=== PATIENT | male | born 1980 | race Caucasian/White ===

== ENCOUNTER 2020-02-10 02:38 | Emergency (ER) | payer OTHER, SELFPAY ==
[2020-02-10 02:41] VITALS: BP 138/90; PULSE 75; RESP 18; TEMP 36.2; O2SAT 98; BMI 25.7
--- NOTE | 2020-02-10 02:43 | XR_ITS ---
WS: [id number] CHEST XRAY TECHNIQUE: Portable chest. CLINICAL INFORMATION: cp COMPARISON: None. FINDINGS: Heart: Normal cardiac silhouette. Lungs: Lungs are clear. No consolidation or pleural effusion. Incidental calcified granuloma left upp er lobe. Bones: Normal visualized bony structures. XR/XR chest 1V portable [id number] IMPRESSION: Normal chest
--- NOTE | 2020-02-10 02:43 | ECG_ITS ---
Measurements Intervals [place] Rate: 66 P: 268 MS: 138 QRS: 84 QRSD: 101 T: 45 QT: 373 QTc: 393 JUNCTIONAL RHYTHM ABNORMAL RHYTHM ECG No previous ECG available for comparison Electronically Signed On 02-10-2020 18:02:32 CDT by Kenrick Robles M.D. [email or web address]
--- NOTE | 2020-02-10 02:45 | W.ED.CHESTPA ---
HPI - Chest Pain General: Chief Complaint: Chest Pain Stated Complaint: cp Time Seen by Provider: 02/10/20 02:40 Source: patient Mode of arrival: ambulatory Limitations: no limitations History of Present Illness: HPI narrative: 39-year-old male states he did have chest pain for the last day. He has had mild dyspnea with the pain. Denies any worsening. Factor. He is a smoker and has no other medical issues. No family history of heart disease. MD complaint: chest pain Onset (ago): hour(s) Timing of current episode: episodic Prior episodes: No Onset: during rest Pain location: left chest Pain radiation: left arm Severity: moderate Quality: tightness Relieving factors: nothing Exacerbating factors: nothing Associated symptoms: Deny abdominal pain, dyspnea, fever(s), nausea or vomiting Review of Systems Const: Denies: fever, chills, body aches or change in appetite Eyes: Denies: blurry vision or eye discomfort ENMT: Denies: throat pain or dental pain Card: Reports: chest pain Resp: Denies: shortness of breath GI: Denies: abdominal pain, nausea, vomiting or diarrhea : Denies: painful urination Musc: Denies: neck pain or back pain Skin/Breast: Denies: rash Neuro: Denies: headache Psych: Denies: depression /Lymph: Denies: easy bruising All/Imm: Denies: hives PFSH ED PFSH: Social History Smoking and tobacco status: current every day smoker Physical Exam Const: COMMON NORMALS: no apparent distress, oriented x3 and healthy appearing HENMT: COMMON NORMALS: normocephalic and head/scalp atraumatic HEAD & SCALP: normocephalic and atraumatic Eye: COMMON NORMALS: PERRL and EOMs intact bilaterally PUPIL: Yes PERRL Neck/C-Spine: COMMON NORMALS: full ROM and supple Chest: COMMONS NORMALS: inspection of chest normal and palpation of chest normal Resp: COMMON NORMALS: normal respiratory effort, no retractions, no use of accessory muscles and clear to auscultation bilaterally AUSCULTATION: clear to auscultation bilaterally Cardio: COMMON NORMALS: regular rate, regular rhythm and no murmurs RATE: regular rate RHYTHM: regular rhythm GI: COMMON NORMALS: normal to inspection, nondistended, normoactive bowel sounds, soft to palpation, non-tender and no masses PALPATION: Yes soft Extremity: COMMON NORMALS: normal to inspection and full ROM Neuro: COMMON NORMALS: oriented x3, moves all extremities and no focal motor deficits Psych: COMMON NORMALS: mental status grossly normal, thought process normal and cooperative THOUGHT PROCESS: normal thought process Skin: COMMON NORMALS: no rashes or lesions noted and no wounds GENERAL SKIN EXAM: no rashes or lesions noted Course Vital Signs: Vital signs: Vital Signs Temperature 97.1 F L 02/10/20 02:41 Pulse Rate 55 L 02/10/20 04:38 Respiratory Rate 16 02/10/20 04:38 Blood Pressure 106/77 02/10/20 04:38 Pulse Oximetry 97 02/10/20 04:38 MDM - Chest Pain MDM Narrative: Medical decision making narrative: Patient presents here with chest pain that is atypical in nature. Patient's initial and repeat EKGs here are negative and troponins are negative as well. Patient has no signs of pulmonary embolism. Patient's heart score here is 0. I feel patient is stable for discharge will prescribe Naprosyn. Patient is to follow-up with his primary care doctor in 1 to 3 days and return to the ER if worsening. Patient understands and agrees to plan. Lab Data: Labs: Lab Results 02/10/20 02/10/20 02/10/20 Range/Units 02:50 02:50 02:50 WBC 8.3 (4.0-10.0) 10^3/ uL RBC 5.32 H (4.1-5.3) 10^6/u L Hgb 14.2 (11.7-16.6) g/dL Hct 45.4 (42.0-52.0) % MCV 85.3 (80-94) fL MCH 26.7 L (28.0-34.0) pg MCHC 31.3 (30.0-36.0) g/dL RDW 13.0 (12.1-15.1) % Plt Count 186 (130-400) 10^3/c mm MPV 12.0 H (7.4-10.4) fL Neut % (Auto) 65.9 % Lymph % (Auto) 24.1 % [place] % (Auto) 7.3 % Eos % (Auto) 1.8 % Baso % (Auto) 0.5 % Neut # (Auto) 5.5 (1.8-7.7) 10^3/u L Lymph # (Auto) 2.0 (0.8-4.8) 10^3/u L [place] # (Auto) 0.6 (0.2-0.9) 10^3/u L Eos # (Auto) 0.2 (0.0-0.8) 10^3/u L Baso # (Auto) 0.0 (0.0-0.1) 10^3/u L Nucleated RBC % (a uto) 0 % Nucleated RBCs # 0.0 /100WBC Sodium 139 (136-145) mmol/L Potassium 3.9 (3.5-5.1) mmol/L Chloride 101 (98-107) mmol/L Carbon Dioxide 26 (22-29) mmol/L Anion Gap 15.9 (5-19) BUN 16 (6-20) mg/dL Creatinine 0.9 (0.7-1.2) mg/dL GFR Calculation 93.0 (90-130) mL/min Glucose 100 (65-115) mg/dL Calculated Osmolal ity 284 L (285-295) mOsm/k g Calcium 10.0 (8.5-10.5) mg/dL Total Bilirubin 0.2 (0.15-1.2) mg/dL AST 32 (0-40) U/L ALT 66 H (0-41) U/L Alkaline Phosphata se 93 (40-130) IU/L Troponin T Baselin e 6 (0-15) ng/mL Troponin T 120 Min [place] (0-15) ng/mL Total Protein 7.3 (6.6-8.7) g/dL Albumin 4.7 (3.5-5.2) g/dL Globulin 2.6 (1.3-4.6) g/dL 02/10/20 Range/Units 04:54 WBC (4.0-10.0) 10^3/ uL RBC (4.1-5.3) 10^6/u L Hgb (11.7-16.6) g/dL Hct (42.0-52.0) % MCV (80-94) fL MCH (28.0-34.0) pg MCHC (30.0-36.0) g/dL RDW (12.1-15.1) % Plt Count (130-400) 10^3/c mm MPV (7.4-10.4) fL Neut % (Auto) % Lymph % (Auto) % [place] % (Auto) % Eos % (Auto) % Baso % (Auto) % Neut # (Auto) (1.8-7.7) 10^3/u L Lymph # (Auto) (0.8-4.8) 10^3/u L [place] # (Auto) (0.2-0.9) 10^3/u L Eos # (Auto) (0.0-0.8) 10^3/u L Baso # (Auto) (0.0-0.1) 10^3/u L Nucleated RBC % (a uto) % Nucleated RBCs # /100WBC Sodium (136-145) mmol/L Potassium (3.5-5.1) mmol/L Chloride (98-107) mmol/L Carbon Dioxide (22-29) mmol/L Anion Gap (5-19) BUN (6-20) mg/dL Creatinine (0.7-1.2) mg/dL GFR Calculation (90-130) mL/min Glucose (65-115) mg/dL Calculated Osmolal ity (285-295) mOsm/k g Calcium (8.5-10.5) mg/dL Total Bilirubin (0.15-1.2) mg/dL AST (0-40) U/L ALT (0-41) U/L Alkaline Phosphata se (40-130) IU/L Troponin T Baselin e (0-15) ng/mL Troponin T 120 Min [place] 6.00 (0-15) ng/mL Total Protein (6.6-8.7) g/dL Albumin (3.5-5.2) g/dL Globulin (1.3-4.6) g/dL Imaging Data^: CXR: Attestation: I personally reviewed and interpreted this imaging study as follows: My impression: no acute abnormality EKG Data^: EKG 1: Attestation: I personally reviewed and interpreted this EKG as follows: EKG interpretation date: 02/10/20 EKG interpretation time: 02:46 Interpretation: junctional rhythm hr [address] or t wave abnormalities qrs 101 qtc 387 EKG 2: Attestation: I personally reviewed and interpreted this EKG as follows: EKG interpretation date: 02/10/20 EKG interpretation time: 04:48 Interpretation: sinus bradycardia hr [address] or t wave abnormalities qrs 98 [id number] Discharge Plan Discharge Patient Disposition: Home, Self-Care Clinical Impression: Chest pain Qualifiers: Chest pain type: unspecified Qualified Code(s): R07.9 - Chest pain, unspecified Condition: Stable Prescriptions: New EC-Naprosyn 500 mg tablet,delayed release (DR/EC) 500 mg PO BID PRN (Reason: pain) Qty: 20 RF: 0 Discharge Orders: Discharge Order (Routine); Ordered 02/10/20 Ordered By: Amber Jasso Referrals: Rasta Tariq MD [Primary Care Provider] - 1-3 days Discharge Diet: Advance as tolerated Discharge Activity: Resume usual activity Patient Instructions: Chest Pain (ED) Coding Level of Care Code ED Textile Finisher for Chg Fwd Exam Comprehensive
[2020-02-10 02:58] LABS: Basophils % 0.5 %; Eosinophils # 0.2 10^3/uL (0.0-0.8); Eosinophils % 1.8 %; Hematocrit 45.4 % (42.0-52.0); Hemoglobin 14.2 g/dL (11.7-16.6); Lymphocytes % 24.1 %; Mean Corpuscular HGB Conc 31.3 g/dL (30.0-36.0); Mean Corpuscular Hemoglobin 26.7 pg (28.0-34.0); Mean Corpuscular Volume 85.3 fL (80-94); Monocytes # 0.6 10^3/uL (0.2-0.9); Monocytes % 7.3 %; Neutrophils # 5.5 10^3/uL (1.8-7.7); Neutrophils % 65.9 %; Nucleated Red Blood Cells % 0 %; Platelet Count 186 10^3/cmm (130-400); Red Blood Count 5.32 10^6/uL (4.1-5.3); White Blood Count 8.3 10^3/uL (4.0-10.0)
[2020-02-10] MEDS: aspirin 81 mg Chew Tablet 324 MG PO (02:58)
[2020-02-10] MEDS: nitroglycerin 0.4 mg sublingual Tablet SUBLINGUAL (02:59)
[2020-02-10 03:16] LABS: Alanine Aminotransferase 66 U/L (0-41); Albumin Level 4.7 g/dL (3.5-5.2); Alkaline Phosphatase 93 IU/L (40-130); Anion Gap 15.9 (5-19); Aspartate Amino Transferase 32 U/L (0-40); Blood Urea Nitrogen 16 mg/dL (6-20); Carbon Dioxide 26 mmol/L (22-29); Chloride 101 mmol/L (98-107); Globulin 2.6 g/dL (1.3-4.6); Glucose 100 mg/dL (65-115); Osmolality Calculated 284 mOsm/kg (285-295); Potassium 3.9 mmol/L (3.5-5.1); Sodium 139 mmol/L (136-145); Total Bilirubin 0.2 mg/dL (0.15-1.2); Total Protein 7.3 g/dL (6.6-8.7)
[2020-02-10 03:24] VITALS: BP 121/80; PULSE 60; RESP 16; O2SAT 96
[2020-02-10 03:39] VITALS: RESP 16
[2020-02-10] MEDS: morphine 4 mg/mL SDV 1 mL IVP (03:39)
[2020-02-10 04:02] LABS: Troponin(5th) Baseline 6 ng/mL (0-15)
[2020-02-10 04:38] VITALS: BP 106/77; PULSE 55; RESP 16; O2SAT 97
--- NOTE | 2020-02-10 04:43 | ECG_ITS ---
Measurements Intervals [place] Rate: 51 P: 47 [place]: 182 QRS: 82 QRSD: 98 T: 51 QT: 410 QTc: 381 SINUS BRADYCARDIA WITH OCCASIONAL SUPRAVENTRICULAR PREMATURE COMPLEXES No previous ECG available for comparison Electronically Signed On 02-10-2020 18:11:11 CDT by Kenrick Robles M.D. [id number]
[2020-02-10 05:15] LABS: Troponin 5 2HR Delta 0 ABS# (0-10)
[2020-02-10] MEDS: ketorolac 30 mg/mL INJ IVP (05:27)
[2020-02-10 05:40] VITALS: BP 119/85; PULSE 57; RESP 16; O2SAT 97
--- NOTE | 2020-02-12 11:43 | DCPLANNER ---
retention manager called to check on patient after recent ER visit. retention manager was unable to speak with patient at this time, a voicemail was left for patient to return watch case polisher phone call.
== END 2020-02-10 05:48 | disposition home or self-care (01) ==
PROVIDERS: Emergency Provider Emergency Medicine; Family Provider Family Medicine; PCP Family Medicine
DX: R07.9 Chest pain, unspecified (principal); F17.200 Nicotine dependence, unspecified, uncomplicated
CPT/HCPCS: 12345; 36415; 71045; 80053; 84484; 85025; 93005; 96374; 96375; 99283; 99284; J1885; J2270

== ENCOUNTER 2020-08-28 19:26 | Emergency (ER) | payer OTHER, SELFPAY ==
[2020-08-28 19:34] VITALS: BP 135/98; PULSE 97; RESP 18; TEMP 36.5; O2SAT 98; BMI 27.8
--- NOTE | 2020-08-28 19:51 | XR_ITS ---
WS: [id number] LUMBAR SPINE: 3 VIEWS TECHNIQUE: AP, lateral and L5-S1 spot. HISTORY: back pain COMPARISON: 10/14/2018 Mild straightening of the normal lumbar alignment. 3 to 4 mm retrolisthesis of L2 and L3 similar to t he prior study. No fractures. Partial sacralization on the RIGHT at L5. No loss of disc space or vertebral body height. Focal area of sclerosis involving the RIGHT side of the SI joints similar to the prior study from . XR/XR lumbar spine 2-3V* [id number] IMPRESSION: 1. No fracture. 2. Mild retrolisthesis of L2 and L3, similar to the prior study.
--- NOTE | 2020-08-28 19:51 | W.ED.BACK ---
HPI - Back Pain/Injury General: Chief Complaint: Back Pain/Injury Stated Complaint: COVID +/ fell Time Seen by Provider: 08/28/20 19:38 History of Present Illness: HPI Narrative: 40-year-old male patient presents to the emergency department with lower back pain. He reports slipped off a step, fell down 3-4 steps, tried to catch himself with the side rail. He reports did not hit his head. Fall occurred around 3-4 PM today. He reports history of low back pain, degenerative disc disease. MD elicited complaint: back pain, back injury and fall Pertinent past history: prior back pain Timing: constant and progressively worsening Severity: moderate Similar Symptoms Previously: Yes Quality: sharp and aching Location: lumbar spine and left lower back Exacerbating factors: movement Relieving factors: immobilization Context: fall Associated symptoms: Reports difficulty walking; Deny abdominal pain, chills, dysuria, fatigue, fever(s), nausea or vomiting Treatments prior to arrival: NSAIDS and acetaminophen Review of Systems General: Reports: 10 or more systems reviewed and unremarkable except in HPI and below Const: Denies: fever(s), chills, fatigue or diaphoresis Eyes: Denies: blurry vision or eye redness ENMT: Denies: throat pain, dental pain or disequilibrium Card: Denies: chest pain, palpitations or irregular heart rhythm Resp: Denies: dyspnea, productive cough, non-productive cough or wheezing GI: Denies: abdominal pain, nausea or vomiting : Denies: dysuria Musc: Reports: back pain and limited range of motion (lumbar spine); Denies: neck pain, extremity pain or muscle cramps Skin/Breast: Denies: rash, pruritus or skin tenderness Neuro: Reports: difficulty walking /Lymph: Denies: easy bruising PFS ED PFSH: Social History Smoking and tobacco status: current every day smoker Physical Exam Const: COMMON NORMALS: no acute distress, patient oriented x3, healthy appearing and alert GENERAL APPEARANCE: cooperative, comfortable and well hydrated ORIENTATION/CONSCIOUSNESS: Yes oriented to person, Yes oriented to place and Yes oriented to time HENMT: COMMON NORMALS: normocephalic, Normal external nose present and moist oral mucous membranes HEAD & SCALP: normocephalic NOSE: Normal external nose present Eye: COMMON NORMALS: Equal, round and reactive pupils present and EOMs intact bilaterally GENERAL EYE: appearance normal, both eyes and all related structures PUPIL: Yes Equal, round and reactive pupils present Neck/C-Spine: COMMON NORMALS: full ROM and no lymphadenopathy GENERAL: Yes normal visual inspection and Yes trachea midline CERVICAL SPINE: Yes cervical ROM normal, No pain with cervical ROM, No Cervical spine tenderness and No Paracervical muscle tenderness Lymph: LYMPHATIC: no lymphadenopathy noted Chest: COMMONS NORMALS: normal inspection of the chest and normal palpation of entire chest wall Resp: COMMON NORMALS: normal respiratory effort and clear to auscultation bilaterally AUSCULTATION: clear to auscultation bilaterally Cardio: COMMON NORMALS: regular rhythm, S1 normal heart sound present, S2 normal heart sound present and Peripheral pulses 2+ throughout RHYTHM: regular rhythm HEART SOUNDS: S1 normal heart sound present and S2 normal heart sound present PERIPHERAL PULSES: Peripheral pulses 2+ throughout GI: COMMON NORMALS: Soft to palpation and non-tender INSPECTION: Yes normal to inspection PALPATION: Yes Soft to palpation : COMMON NORMALS: Yes no CVA tenderness BLADDER/KIDNEY EXAM: Yes no CVA tenderness Back/Pelvis: COMMON NORMALS: no CVA tenderness THORACIC SPINE/UPPER BACK: Yes normal to inspection, Yes thoracic ROM normal, No thoracic spinal tenderness, No paraspinal muscle tenderness and No paraspinal muscle spasm LUMBAR SPINE/LOWER BACK: Yes ROM limited (Flexion extension hip rotation), Yes pain with ROM, No lumbar spinal tenderness, Yes paraspinal muscle tenderness Lumbar paraspinal muscle tenderness: left, Yes paraspinal muscle spasm Lumbar paraspinal muscle spasm: left, Yes straight leg raise positive left and Yes bend over test abnormal PELVIS: Yes buttocks normal SACROILIAC JOINTS: Yes SI joints normal SACRUM: no ecchymosis COCCYX: no swelling Extremity: COMMON NORMALS: normal to inspection and capillary refill normal Neuro: COMMON NORMALS: patient oriented x3 and no focal motor deficits SENSORIUM/ORIENTATION: Yes alert, Yes oriented to person, Yes oriented to place and Yes oriented to time SPEECH: speech normal GAIT: Yes Other gait observations present (slow steady gait) MOTOR EXAM: 5/5 motor strength present throughout Psych: COMMON NORMALS: mental status grossly normal, Normal thought process present and cooperative ACTIVITY/MOTOR BEHAVIOR: Yes appropriate eye contact THOUGHT PROCESS: Normal thought process present Skin: COMMON NORMALS: no rashes or lesions noted and turgor normal GENERAL SKIN EXAM: no rashes or lesions noted and turgor normal Course Vital Signs: Vital signs: Vital Signs Temperature 97.7 F 08/28/20 19:34 Pulse Rate 97 08/28/20 19:34 Respiratory Rate 18 08/28/20 19:34 Blood Pressure 135/98 08/28/20 19:34 Pulse Oximetry 98 08/28/20 19:34 MDM - Back Pain/Injury Differential Diagnosis: Differential diagnosis back pain/injury: Likely lumbar radiculopathy, sciatica and strain of lumbar region Imaging Data^: Xray Ortho: My impression: Lumbar spine series; no acute fracture appreciated, subluxation L1-L2 in comparison with lumbar spine x-rays completed, 1210, no acute change; radiology interpretation pending Discharge Plan Discharge Patient Disposition: Home Clinical Impression: Strain of lumbar region Qualifiers: Encounter type: initial encounter Qualified Code(s): S39.012A - Strain of muscle, fascia and tendon of lower back, initial encounter Fall Qualifiers: Encounter type: initial encounter Qualified Code(s): W19.XXXA - Unspecified fall, initial encounter Low back pain Qualifiers: Chronicity: acute Back pain laterality: left Sciatica presence: without sciatica Qualified Code(s): M54.5 - Low back pain Condition: Stable Prescriptions: New Robaxin-750 750 mg tablet 750 mg PO Q8H Qty: 14 RF: 0 naproxen 500 mg tablet 500 mg PO BID PRN (Reason: pain) Qty: 30 RF: 0 No Action lidocaine (PF) 20 mg/mL (2 %) solution 20 mg IM ONCE Qty: 1 RF: 0 bupropion HCl [Wellbutrin SR] 200 mg tablet sustained-release 12 hr 200 mg PO BID RF: 0 paroxetine HCl 10 mg tablet 10 mg PO DAILY RF: 0 methylphenidate HCl [Ritalin LA] 20 mg capsule,ER biphasic 50-50 20 mg PO DAILY RF: 0 famotidine [Pepcid] 20 mg tablet 20 mg PO DAILY RF: 0 clindamycin HCl 300 mg capsule 300 mg PO TID 7 Days Qty: 21 RF: 0 naproxen sodium 550 mg tablet 550 mg PO .prn bid Qty: 20 RF: 0 cefdinir 300 mg capsule 300 mg PO BID 7 Days Qty: 14 RF: 0 EC-Naprosyn 500 mg tablet,delayed release (DR/EC) 500 mg PO BID PRN (Reason: pain) Qty: 20 RF: 0 Discharge Orders: Discharge Order (Routine); Ordered 08/28/20 Ordered By: Aleisha Jin Referrals: Rasta Tariq MD [Primary Care Provider] - Discharge Diet: Usual diet Discharge Activity: Limit activity as instructed Patient Instructions: Acute Low Back Pain (ED), Chronic Back Pain (ED) Activity Restrictions/Additional Instructions: Return to the emergency department if you develop bilateral lower extremity numbness/tingling or weakness, inability to feel your legs, bladder or bowel incontinence or other concerning symptoms. May take 1 g of Tylenol, 3 times daily as needed for pain, do not exceed 3 doses in 24-hour., Avoid the use of ekse-vas-dufpmpr medications such as Aleve, ibuprofen, Advil as duplication of therapy can occur with use of naproxen. May apply cool compresses/alternate with warm moist heat as needed for pain May apply topical ugcu-ing-dfuvitk analgesics such as Salonpas or Biofreeze to the area Follow-up with your primary care physician this week if pain is not improved Avoid twisting bending or lifting greater than 10 pounds until improved Stand Alone Forms: Work/School Release Discharge Date/Time: 08/28/20 21:34 Coding Level of Care Code ED Diesel Dinkey Operator for Mabel Fwd Exam Comprehensive
[2020-08-28] MEDS: orphenadrine 30 mg/mL Inj 2 mL 60 MG IM (20:10)
[2020-08-28] MEDS: ketorolac 60 mg/2 mL INJ IM (20:10)
[2020-08-28] MEDS: HYDROcodone-acetaminophen 5-325 mg Tablet 1 TAB PO (21:33)
== END 2020-08-28 21:34 | disposition home or self-care (01) ==
PROVIDERS: Emergency Provider Nurse Practitioner Family; PCP Family Medicine
DX: S39.012A Strain of muscle, fascia and tendon of lower back, initial encounter (principal); F17.210 Nicotine dependence, cigarettes, uncomplicated; W10.8XXA Fall (on) (from) other stairs and steps, initial encounter
CPT/HCPCS: 12345; 72100; 96372; 99281; 99283; J1885; J2360

== ENCOUNTER 2021-07-28 21:43 | Emergency (ER) | payer OTHER, SELFPAY ==
[2021-07-28 21:53] VITALS: BP 127/93; PULSE 104; RESP 18; O2SAT 99; BMI 26.4
--- NOTE | 2021-07-28 22:12 | W.ED.EXTPRO ---
HPI - Extremity Problem General: Chief complaint: Extremity Injury, Lower Stated complaint: R Leg Pain Time Seen by Provider: 07/28/21 21:50 History of Present Illness: HPI Narrative: Patient has pain that radiates down the right leg times last 3 days. Worse when up moving about sitting up. Has a history of sciatica in the past and has taken muscle relaxers and hydrocodone to help with this discomfort. MD Complaint: extremity pain Onset (ago): day(s) Pain Consistency: constant Location: right and lower extremity Severity scale (1-10): 5 Quality: aching Radiation: distal Relieving factors: immobilization Exacerbating factors: range of motion Associated symptoms: Reports no associated symptoms; Deny chest pain, fever(s) or rash Review of Systems Const: Denies: fever(s), chills or body aches Eyes: Denies: change in vision or blurry vision ENMT: Denies: throat pain or nasal congestion Card: Denies: chest pain or dyspnea on exertion Resp: Denies: dyspnea, productive cough or non-productive cough GI: Denies: abdominal pain, nausea or vomiting : Denies: difficulty urinating Musc: Reports: extremity pain and muscle cramps Skin/Breast: Denies: rash Neuro: Denies: headache(s) Psych: Denies: anxiety or depression /Lymph: Denies: easy bruising PFSH ED PFSH: Social History Smoking and tobacco status: current every day smoker Physical Exam Const: COMMON NORMALS: no acute distress, average body habitus and patient oriented x3 HENMT: COMMON NORMALS: normocephalic HEAD & SCALP: normal to inspection and normocephalic FACE & SINUS: normal facial exam Eye: COMMON NORMALS: conjunctivae normal GENERAL EYE: appearance normal, both eyes and all related structures CONJUNCTIVA: Yes conjunctivae normal Neck/C-Spine: COMMON NORMALS: no JVD Chest: COMMONS NORMALS: normal inspection of the chest Resp: COMMON NORMALS: normal respiratory effort and clear to auscultation bilaterally AUSCULTATION: clear to auscultation bilaterally Cardio: COMMON NORMALS: no JVD, regular rate and regular rhythm RATE: regular rate RHYTHM: regular rhythm GI: COMMON NORMALS: Normal to inspection, nondistended, normoactive bowel sounds present Back/Pelvis: LUMBAR SPINE/LOWER BACK: Yes paraspinal muscle tenderness, No straight leg raise negative bilaterally and Yes straight leg raise positive right OTHER: Pain down the right leg to fall and sciatic nerve. Stops about mid calf. No redness or swelling noted to the calf no signs of blood clots externally. Homans negative. Extremity: COMMON NORMALS: normal to inspection and full ROM Neuro: COMMON NORMALS: patient oriented x3 Course Vital Signs: Vital signs: Vital Signs Pulse Rate 104 H 07/28/21 21:53 Respiratory Rate 18 07/28/21 21:53 Blood Pressure 127/93 07/28/21 21:53 Pulse Oximetry 99 07/28/21 21:53 Discharge Plan Discharge Patient Disposition: Home Clinical Impression: Sciatic leg pain Condition: Stable Prescriptions: New prednisone 20 mg tablet 20 mg PO DAILY Qty: 7 RF: 0 tramadol 50 mg tablet 50 mg PO TID PRN (Reason: pain) Qty: 7 RF: 0 cyclobenzaprine 5 mg tablet 5 mg PO TID PRN (Reason: muscle spasm) Qty: 10 RF: 0 No Action lidocaine (PF) 20 mg/mL (2 %) solution 20 mg IM ONCE Qty: 1 RF: 0 bupropion HCl [Wellbutrin SR] 200 mg tablet sustained-release 12 hr 200 mg PO BID RF: 0 paroxetine HCl 10 mg tablet 10 mg PO DAILY RF: 0 methylphenidate HCl [Ritalin LA] 20 mg capsule,ER biphasic 50-50 20 mg PO DAILY RF: 0 famotidine [Pepcid] 20 mg tablet 20 mg PO DAILY RF: 0 clindamycin HCl 300 mg capsule 300 mg PO TID 7 Days Qty: 21 RF: 0 naproxen sodium 550 mg tablet 550 mg PO .prn bid Qty: 20 RF: 0 cefdinir 300 mg capsule 300 mg PO BID 7 Days Qty: 14 RF: 0 EC-Naprosyn 500 mg tablet,delayed release (DR/EC) 500 mg PO BID PRN (Reason: pain) Qty: 20 RF: 0 Robaxin-750 750 mg tablet 750 mg PO Q8H Qty: 14 RF: 0 naproxen 500 mg tablet 500 mg PO BID PRN (Reason: pain) Qty: 30 RF: 0 Discharge Orders: Discharge ED (Routine); Ordered 07/28/21 Ordered By: Nestor Metzger Referrals: Rasta Tariq MD [Primary Care Provider] - Discharge Diet: Usual diet Discharge Activity: Increase activity as tolerated Patient Instructions: Sciatica (ED) Activity Restrictions/Additional Instructions: Follow-up with medical provider as directed. Take medications as prescribed. Return to the ER or your medical provider if condition worsens. Please read and understand discharge instructions. If any questions ask please. Follow-up with chiropractor if needed. Apply ice to low back area. No lifting over 10 to 15 pounds for next 3 to 4 weeks. Coding Level of Care Code ED Facilities Mechanical Design Engineer for Mabel Izaguirre
[2021-07-28] MEDS: HYDROcodone-acetaminophen 5-325 mg Tablet 1 TAB PO (22:21)
[2021-07-28] MEDS: predniSONE 20 mg Tablet 60 MG PO (22:21)
[2021-07-28 22:40] VITALS: BP 122/69; PULSE 70; RESP 18; O2SAT 99
== END 2021-07-28 22:41 | disposition home or self-care (01) ==
LOC: ER 22:23
PROVIDERS: Emergency Provider Nurse Practitioner Family; PCP Family Medicine
DX: M54.31 Sciatica, right side (principal); F17.210 Nicotine dependence, cigarettes, uncomplicated
CPT/HCPCS: 99283; J7512

== ENCOUNTER 2022-05-10 14:56 | Emergency (ER) | payer OTHER, SELFPAY ==
[2022-05-10 15:07] VITALS: BP 126/82; PULSE 86; RESP 16; TEMP 36.3; O2SAT 96
--- NOTE | 2022-05-10 16:14 | CTR_ITS ---
PROCEDURE INFORMATION: Exam: CT Lumbar Spine Without Contrast Exam date and time: 05/10/2022 5:40 PM Age: 42 years old Clinical indication: Injury or trauma; Fall; Blunt trauma (contusions or hematomas); Injury details: Fell from standing position, C/O lbp; Additional info: Fall pain TECHNIQUE: Imaging protocol: Computed tomography of the lumbar spine without contrast. Radiation optimization: All CT scans at this facility use at least one of these dose optimization techniques: automated exposure control; mA and/or kV adjustment per patient size (includes targeted exams where dose is matched to clinical indication); or iterative reconstruction. COMPARISON: MRI Lumbar Spine w/o [id number] 09/05/2016 6:57 AM RADIATION DOSE METRICS: Total DLP (mGy-cm): 1469 FINDINGS: Bones/joints: No acute fracture. Normal alignment. Discs/Spinal canal/Neural foramina: No significant disc protrusion. No severe spinal canal stenosis. No significant neural foraminal narrowing. Soft tissues: Unremarkable. CT/CT lumbar spine wo con* [id number] IMPRESSION: No acute findings.
--- NOTE | 2022-05-10 16:34 | W.ED.GENADLT ---
Documented by User: Toño Guaman DO 05/11/22 06:45 HPI - General Adult General: Chief complaint: General Medical Stated complaint: fell, unable to sleep Time Seen by Provider: 05/10/22 16:10 Source: patient Mode of arrival: ambulatory Limitations: no limitations History of Present Illness: 42-year-old male presents emergency room complaining of back pain. He hurt his back while working several days ago due to the pain he has had difficulty sleeping and relates that his pain worsens radiates into his left leg. He has chronic low back pain and left leg radiculopathy is not a new symptom. He has not had any urinary retention but has had some difficulty starting urine that also has not a particularly new symptom. No fecal incontinence. No new trauma. Today evidently he dozed off while standing trying to go to the bathroom and fell into the bathtub and reinjured his back again. Onset (ago): day(s) Location: back Radiation: extremity ( r leg) Severity: severe Quality: aching Pain Consistency: constant Relieving factors: other (Supine) Exacerbating factors: movement Associated symptoms: Deny chest pain, dyspnea, malaise, nausea, rash or vomiting Treatments prior to arrival: NSAID Review of Systems Const: Denies: fever(s), chills, body aches, change in appetite, fatigue or malaise ENMT: Denies: throat pain, ear or mastoid pain, nasal discharge or nasal congestion Card: Denies: chest pain, edema, dyspnea on exertion or orthopnea Resp: Denies: dyspnea, productive cough or non-productive cough GI: Denies: abdominal pain, nausea, vomiting, hematemesis, coffee ground emesis, diarrhea, constipation, bloating, hematochezia or melena : Denies: flank pain, difficulty urinating, dysuria, urinary frequency or urinary urgency Musc: Reports: back pain and extremity pain Skin/Breast: Denies: rash or pruritus PFSH ED PFSH: Medical History (Updated 05/10/22 @ 18:28 by Amber Jasso MD) Chronic back pain Social History (Updated 05/10/22 @ 17:06 by Toño Guaman DO) Smoking and tobacco status: current every day smoker Alcohol intake: current Physical Exam Const: COMMON NORMALS: no acute distress GENERAL APPEARANCE: cooperative and comfortable ORIENTATION/CONSCIOUSNESS: Yes awake, Yes oriented to person, Yes oriented to place and Yes oriented to time HENMT: COMMON NORMALS: normocephalic, atraumatic and hearing grossly normal bilaterally HEAD & SCALP: normocephalic and atraumatic Neck/C-Spine: COMMON NORMALS: no JVD Resp: COMMON NORMALS: normal respiratory effort, No retractions, No use of accessory muscles and clear to auscultation bilaterally AUSCULTATION: clear to auscultation bilaterally Cardio: COMMON NORMALS: no JVD, regular rate, regular rhythm and No murmurs present (Cardio) RATE: regular rate RHYTHM: regular rhythm GI: COMMON NORMALS: Soft to palpation and No hepatosplenomegaly present AUSCULTATION: Yes normoactive bowel sounds PALPATION: Yes Soft to palpation, No Tenderness to palpation present (GI), No Guarding due to palpation present (GI) and Yes No hepatosplenomegaly present Extremity: COMMON NORMALS: normal to inspection, capillary refill normal, no clubbing, cyanosis or edema, no calf tenderness and no pedal edema Neuro: SENSORIUM/ORIENTATION: Yes oriented to person, Yes oriented to place and Yes oriented to time SENSORY EXAM: Yes extremities (Normal to lower extremities) MOTOR EXAM: 5/5 motor strength present throughout (Dorsum plantar flex right lower extremities 5 5) DEEP TENDON REFLEXES: Right patellar reflex intensity grade: 2+ and Left patellar reflex intensity grade: 2+ OTHER: Straight leg raising negative Skin: COMMON NORMALS: no rashes or lesions noted GENERAL SKIN EXAM: no rashes or lesions noted Course Vital Signs: Vital signs: Vital Signs Temperature 97.4 F L 05/10/22 15:07 Pulse Rate 75 05/10/22 18:43 Respiratory Rate 20 H 05/10/22 18:43 Blood Pressure 124/78 05/10/22 18:43 Pulse Oximetry 99 05/10/22 18:43 [facility] - General Adult Medical Decision Making Care signed out to Dr. Jasso at change of shift. See final notes for diagnosis and disposition. Patient presents here with insomnia along with chronic back pain patient's blood work and back CT here are normal. He is feeling improved. Feel he is stable for discharge she is to follow-up his PCP and return if worsening he understands agrees to plan. Medical Records I reviewed the patient's medical records. Lab Data I reviewed the patient's lab results. : 05/10/22 17:08 05/10/22 17:08 Radiology Impressions Lumbar Spine CT 05/10/22 16:14 IMPRESSION: No acute findings. Laboratory Results WBC 6.0 10^3/uL (4.0-10.0) 05/10/22 17:08 RBC 4.59 10^6/uL (4.1-5.3) 05/10/22 17:08 Hgb 12.0 g/dL (11.7-16.6) 05/10/22 17:08 Hct 38.6 % (42.0-52.0) L 05/10/22 17:08 MCV 84.1 fl (80-94) 05/10/22 17:08 MCH 26.1 pg (28.0-34.0) L 05/10/22 17:08 MCHC 31.1 g/dL (30.0-36.0) 05/10/22 17:08 RDW 15.4 % (12.1-15.1) H 05/10/22 17:08 Plt Count 203 10^3/cmm (130-400) 05/10/22 17:08 MPV 11.3 fL (7.4-10.4) H 05/10/22 17:08 Neut % (Auto) 70.3 % 05/10/22 17:08 Lymph % (Auto) 18.4 % 05/10/22 17:08 Prentiss % (Auto) 8.5 % 05/10/22 17:08 Eos % (Auto) 2.0 % 05/10/22 17:08 Baso % (Auto) 0.5 % 05/10/22 17:08 Neut # (Auto) 4.19 10^3/uL (1.8-7.7) 05/10/22 17:08 Lymph # (Auto) 1.1 10^3/uL (0.8-4.8) 05/10/22 17:08 Prentiss # (Auto) 0.5 10^3/uL (0.2-0.9) 05/10/22 17:08 Eos # (Auto) 0.1 10^3/uL (0.0-0.8) 05/10/22 17:08 Baso # (Auto) 0.0 10^3/uL (0.0-0.1) 05/10/22 17:08 Nucleated RBC % (auto) 0 % 05/10/22 17:08 Nucleated RBCs # 0.0 /100WBC 05/10/22 17:08 Sodium 138 mmol/L (136-145) 05/10/22 17:08 Potassium 4.1 mmol/L (3.5-5.1) 05/10/22 17:08 Chloride 98 mmol/L (98-107) 05/10/22 17:08 Carbon Dioxide 29 mmol/L (22-29) 05/10/22 17:08 Anion Gap 15.1 (5-19) 05/10/22 17:08 BUN 12 mg/dL (6-20) 05/10/22 17:08 Creatinine 0.9 mg/dL (0.7-1.2) 05/10/22 17:08 GFR Calculation 91.7 mL/min (90-130) 05/10/22 17:08 Glucose 102 mg/dL (65-115) 05/10/22 17:08 Calculated Osmolality 286 mOsm/kg (285-295) 05/10/22 17:08 Calcium 9.1 mg/dL (8.5-10.5) 05/10/22 17:08 Total Bilirubin 0.2 mg/dL (0.15-1.2) 05/10/22 17:08 AST 32 U/L (0-40) 05/10/22 17:08 ALT 48 U/L (0-41) H 05/10/22 17:08 Alkaline Phosphatase 138 IU/L (40-130) H 05/10/22 17:08 Total Protein 7.3 g/dL (6.6-8.7) 05/10/22 17:08 Albumin 4.1 g/dL (3.5-5.2) 05/10/22 17:08 Globulin 3.2 g/dL (1.3-4.6) 05/10/22 17:08 Urine Color Yellow (Yellow) 05/10/22 16:50 Urine Appearance Clear (CLEAR) 05/10/22 16:50 Urine pH 8 (5-7) H 05/10/22 16:50 Ur Specific [place] 1.010 (1.005-1.030) 05/10/22 16:50 Urine Protein Neg (Negative) 05/10/22 16:50 Urine Glucose (UA) Norm (Normal) 05/10/22 16:50 Urine Ketones Negative (Negative) 05/10/22 16:50 Urine Blood Neg (Negative) 05/10/22 16:50 Urine Nitrate Negative (Negative) 05/10/22 16:50 Urine Bilirubin Neg (Negative) 05/10/22 16:50 Prot Sulfosalicylic Acd Negative (Negative) 05/10/22 16:50 Urine Urobilinogen Norm mg/dL (Negative) 05/10/22 16:50 Ur Leukocyte Esterase Negative (Negative) 05/10/22 16:50 Discharge Plan Discharge Patient Disposition: Home Clinical Impression: Back pain, Sleep trouble Condition: Stable Prescriptions: New hydrocodone-acetaminophen 5-325 mg tablet 1 tab PO Q6H PRN (Reason: pain) Qty: 10 0RF methocarbamol 750 mg tablet 750 mg PO Q6H PRN (Reason: spasms) Qty: 20 0RF Naprosyn 500 mg tablet 500 mg PO BID PRN (Reason: pain) Qty: 20 0RF No Action bupropion HCl [Wellbutrin SR] 200 mg tablet sustained-release 12 hr 200 mg PO BID 0RF paroxetine HCl 10 mg tablet 10 mg PO DAILY 0RF Pepcid AC 20 mg Tablet 40 - 60 mg PO DAILY PRN (Reason: Heartburn) 0RF methylphenidate HCl 20 mg capsule,ER biphasic 50-50 20 mg PO DAILY 0RF Discharge Orders: Discharge ED (Routine); Ordered 05/10/22 Ordered By: Amber Jasso Referrals: Rasta Tariq MD [Primary Care Provider] - Discharge Diet: Advance as tolerated Discharge Activity: Resume usual activity Print Language: Yakut Coding Level of Care Code ED Criminal Justice Teacher for Chg Fwd Exam Comprehensive Documented by User: Amber Jasso MD 05/10/22 18:45 HPI - General Adult General: Chief complaint: General Medical Stated complaint: fell, unable to sleep Time Seen by Provider: 05/10/22 16:10 [facility] ED PFSH: Medical History (Updated 05/10/22 @ 18:28 by Amber Jasso MD) Chronic back pain Social History (Updated 05/10/22 @ 17:06 by Toño Guaman DO) Smoking and tobacco status: current every day smoker Alcohol intake: current Course Vital Signs: Vital signs: Vital Signs Temperature 97.4 F L 05/10/22 15:07 Pulse Rate 75 05/10/22 18:43 Respiratory Rate 20 H 05/10/22 18:43 Blood Pressure 124/78 05/10/22 18:43 Pulse Oximetry 99 05/10/22 18:43 MDM - General Adult Medical Decision Making Patient presents here with insomnia along with chronic back pain patient's blood work and back CT here are normal. He is feeling improved. Feel he is stable for discharge she is to follow-up his PCP and return if worsening he understands agrees to plan. Lab Data : 05/10/22 17:08 05/10/22 17:08 Radiology Impressions Lumbar Spine CT 05/10/22 16:14
[2022-05-10 17:09] LABS: Add Urine Microscopic? NO; Charge for UA Resulting for Rev
[2022-05-10 17:14] LABS: Basophils % 0.5 %; Eosinophils # 0.1 10^3/uL (0.0-0.8); Hematocrit 38.6 % (42.0-52.0); Lymphocytes # 1.1 10^3/uL (0.8-4.8); Lymphocytes % 18.4 %; Mean Corpuscular HGB Conc 31.1 g/dL (30.0-36.0); Mean Corpuscular Hemoglobin 26.1 pg (28.0-34.0); Mean Corpuscular Volume 84.1 fl (80-94); Mean Platelet Volume 11.3 fL (7.4-10.4); Monocytes # 0.5 10^3/uL (0.2-0.9); Monocytes % 8.5 %; Neutrophils # 4.19 10^3/uL (1.8-7.7); Neutrophils % 70.3 %; Nucleated Red Blood Cells % 0 %; Platelet Count 203 10^3/cmm (130-400); Red Blood Count 4.59 10^6/uL (4.1-5.3); Red Cell Distribution Width 15.4 % (12.1-15.1)
[2022-05-10] MEDS: ketorolac 30 mg/mL INJ IVP (17:20)
[2022-05-10] MEDS: dexamethasone 4 mg/mL INJ IVP (17:22)
[2022-05-10 17:23] VITALS: RESP 18
[2022-05-10] MEDS: morphine 4 mg/mL SDV 1 mL IVP (17:23)
[2022-05-10] MEDS: orphenadrine 30 mg/mL Inj 2 mL 60 MG IVP (17:25)
[2022-05-10 17:33] LABS: Bilirubin Urine Neg (Negative); Blood Urine Neg (Negative); Glucose Urine UA Norm (Normal); Ketones Urine Negative (Negative); Leukocyte Esterase Urine Negative (Negative); Nitrate Urine Negative (Negative); Protein Urine Neg (Negative); Sulfosalicylic Acid Urine Negative (Negative); Urine Appearance Clear (CLEAR); Urine Color Yellow (Yellow); Urobilinogen Urine Norm (Negative); pH Urine 8 (5-7)
[2022-05-10 17:44] LABS: Alanine Aminotransferase 48 U/L (0-41); Albumin Level 4.1 g/dL (3.5-5.2); Alkaline Phosphatase 138 IU/L (40-130); Blood Urea Nitrogen 12 mg/dL (6-20); Calcium 9.1 mg/dL (8.5-10.5); Carbon Dioxide 29 mmol/L (22-29); Chloride 98 mmol/L (98-107); Globulin 3.2 g/dL (1.3-4.6); Glomerular Filtration Rate 91.7 mL/min (90-130); Glucose 102 mg/dL (65-115); Osmolality Calculated 286 mOsm/kg (285-295); Sodium 138 mmol/L (136-145); Total Bilirubin 0.2 mg/dL (0.15-1.2); Total Protein 7.3 g/dL (6.6-8.7)
[2022-05-10 17:50] LABS: Anion Gap 15.1 (5-19); Aspartate Amino Transferase 32 U/L (0-40); Potassium 4.1 mmol/L (3.5-5.1)
[2022-05-10 18:08] VITALS: BP 129/85; PULSE 75; RESP 18; O2SAT 99
[2022-05-10] MEDS: LORazepam 1 mg Tablet PO (18:34)
[2022-05-10 18:43] VITALS: BP 124/78; PULSE 75; RESP 20; O2SAT 99
== END 2022-05-10 18:39 | disposition home or self-care (01) ==
PROVIDERS: Family Medicine; Emergency Provider Emergency Medicine; PCP Family Medicine
DX: M54.50 Low back pain, unspecified (principal); G47.9 Sleep disorder, unspecified
CPT/HCPCS: 72131; 80053; 81003; 85025; 96374; 96375; 99285; J1100; J1885; J2270; J2360

== ENCOUNTER 2022-11-09 12:11 | Outpatient (CLI) | payer OTHER, SELFPAY ==
--- NOTE | 2022-11-09 12:29 | USCV_ITS ---
Ken Delgadillo Age: 42 Gender: M : 1980 Exam Date: 11/09/2022 12:48 Ordering Phys: Rasta Tariq MD Technologist: CARMELITA Exam Location: [facility] [place] Indication: No trauma but pain lt knee down HISTORY: Pain Lt knee to ankle PROCEDURES: Venous duplex imaging was performed in only the left lower extremity. The following venous structures were evaluated: common femoral vein, profunda vein, proximal portion of the greater saphenous vein, superficial femoral vein, and the popliteal vein. In addition, the posterior tibial and peroneal trunk were evaluated. Serial compression, augmentation maneuvers, and spectral Doppler flow evaluation were performed. FINDINGS: Normal 2-D Doppler and augmentation and compressibility throughout the lower extremity venous structures. Additional imaging through the proximal calf veins also reveals no thrombus. Limited evaluation of the greater saphenous vein is patent with no thrombus.. Fluid collection lt medial knee. Called Prelim to [employer] at 13:06. CONCLUSIONS No evidence of left lower extremity DVT. Popliteal cyst or small fluid collection measuring 1.9cm Eitan Neville MD (Electronically Signed) Final Date: 09 November 2022 18:10 S
== END 2022-11-09 12:12 | disposition home or self-care (01) ==
PROVIDERS: PCP Family Medicine; Visit Provider Family Medicine
DX: M79.662 Pain in left lower leg (principal); M79.89 Other specified soft tissue disorders
CPT/HCPCS: 93971

== ENCOUNTER → 2022-11-30 15:02 | Outpatient (BNVA) | payer OTHER, SELFPAY | PROVIDERS: PCP Family Medicine; Referring Provider Family Medicine; Visit Provider Student in an Organized Health Care Education/Training Program | DX: M71.22 Synovial cyst of popliteal space [Baker], left knee (principal) | CPT/HCPCS: 73560; 73565 ==

== ENCOUNTER 2023-06-19 12:22 | Outpatient (CLI) | payer OTHER, SELFPAY ==
--- NOTE | 2023-06-19 13:00 | MR_ITS ---
WS: [id number] MRI LEFT KNEE NONCONTRAST TECHNIQUE: Axial PD, coronal PD fat sat, coronal PD, sagittal PD, and sagittal PD fat-sat images obta ined. CLINICAL INFORMATION: knee injury COMPARISON: None. FINDINGS: Distal quadriceps and patellar tendons are intact. Normal ACL and PCL. Complex horizontal and radial tear involving the posterior horn medial meniscus extending to the meniscal root and peripheral artic ular surface. Chronic intrasubstance signal normality in the posterior horn. Normal lateral meniscus. Moderate chondromalacia patella somewhat advanced for patient this age. No subchondral edema. Tiny am ount of prepatellar soft tissue edema. Medial and lateral patellar retinaculum are normal. Normal lat eral collateral ligament and biceps femoris. Normal medial collateral ligament. Normal popliteal medardo a. Mild narrowing of the medial and lateral joint compartments with mild chondromalacia. IMPRESSION: * Normal ACL and PCL. * Complex radial and horizontal tear involving the posterior horn medial meniscus extending to the m eniscal root and peripheral articular surface. * Medial and lateral collateral ligaments are normal. 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 * No other acute findings. Outbridge grading: grade II: blister-like swelling/fraying of articular cartilage extending to surfac e
== END 2023-06-19 12:23 | disposition home or self-care (01) ==
LOC: RAD 12:27
PROVIDERS: PCP Family Medicine; Visit Provider Student in an Organized Health Care Education/Training Program
DX: S83.232A Complex tear of medial meniscus, current injury, left knee, initial encounter (principal); X58.XXXA Exposure to other specified factors, initial encounter; M22.42 Chondromalacia patellae, left knee; M71.20 Synovial cyst of popliteal space [Baker], unspecified knee
CPT/HCPCS: 73721

== ENCOUNTER 2023-08-28 20:05 | Emergency (ER) | payer OTHER, SELFPAY ==
[2023-08-28 20:10] VITALS: BP 162/96; PULSE 78; RESP 16; TEMP 36.7; O2SAT 98; BMI 27.0
--- NOTE | 2023-08-28 22:23 | ED_ITS ---
HPI - Extremity Problem General: Chief complaint: Extremity Injury, Lower Stated complaint: Left knee pain Time Seen by Provider: 08/28/23 22:15 History of Present Illness: 43-year-old male injured his knee in June. He ultimately ended up getting an MRI. The MRI showed: *? Normal ACL and PCL. *? Complex radial and horizontal tear involving the posterior horn medial meniscus extending to the meniscal root and peripheral articular surface. *? Medial and lateral collateral ligaments are normal. *? 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 *? No other acute findings. Outbridge grading: grade II: blister-like swelling/fraying of articular cart ilage extending to surface He is reporting that he is scheduled for surgery but continues to have to bear weight as part of his job. He is not using any sort of immobilizer crutches or walker. He continues to have some swelling. No redness warmth or fever. He is seeking some help with pain control until he can follow-up for surgery. Review of Systems Musc: Reports: joint pain and joint swelling; Denies: joint redness or joint warmth Neuro: Denies: numbness in extremities, weakness in extremities or sensory changes [facility] ED PFSH: Medical History Dowd's cyst of knee Chronic back pain Social History Smoking and tobacco/nicotine status: current every day tobacco/nicotine user Alcohol intake: current Physical Exam Const: COMMON NORMALS: no acute distress, average body habitus, patient oriented x3, no limitations, healthy appearing, alert and well nourished Extremity: NARRATIVE EXTREMITY EXAM: Left lower extremity was examined. No abnormalities of the thigh. No abnormalities of the calf. The patient does have a small effusion of the left knee. No erythema or excessive warmth. He has pain with range of motion. The quadricep and patellar tendons are intact. Since the patient already had an MRI, I did not put him through testing for ligamentous endpoints. Neuro: COMMON NORMALS: patient oriented x3 SENSORIUM/ORIENTATION: Yes alert Course Vital Signs: Vital signs: Vital Signs Temperature 98.0 F 08/28/23 20:10 Pulse Rate 78 08/28/23 20:10 Respiratory Rate 16 08/28/23 20:10 Blood Pressure 162/96 08/28/23 20:10 Pulse Oximetry 98 08/28/23 20:10 MDM - Extremity (Nontraumatic) Medical Decision Making 43-year-old male with swelling/effusion of the left knee secondary to meniscus tears. He is awaiting his surgical date. The plan is to put him in a knee immobilizer, offload some of his weight by using a walker that they have at home, refill pain medication, ice, and rest. He is neurovascularly intact. is present and can drive him home. He will get a dose of Lynden and naproxen here. No clinical signs or symptoms of DVT. No radiology studies performed this visit Discharge Plan Discharge Patient Disposition: Home Clinical Impression: Tear of medial meniscus of left knee Condition: Stable Prescriptions: New hydrocodone-acetaminophen 7.5-325 mg tablet 1 tab PO Q6H PRN (Reason: pain) Qty: 20 0RF Discontinued hydrocodone-acetaminophen 5-325 mg tablet 1 tab PO Q6H PRN (Reason: pain) 5 Days Qty: 20 0RF No Action bupropion HCl [Wellbutrin SR] 200 mg tablet sustained-release 12 hr 200 mg PO BID paroxetine HCl 10 mg tablet 10 mg PO DAILY Pepcid AC 20 mg Tablet 40 - 60 mg PO DAILY PRN (Reason: Heartburn) methylphenidate HCl 20 mg capsule,ER biphasic 50-50 20 mg PO DAILY methocarbamol 750 mg tablet 750 mg PO Q6H PRN (Reason: spasms) Qty: 20 0RF Naprosyn 500 mg tablet 500 mg PO BID PRN (Reason: pain) Qty: 20 0RF Discharge Orders: Discharge ED (Routine); Ordered 08/28/23 Ordered By: Diaz Richey Referrals: Rasta Tariq MD [Primary Care Provider] - Discharge Activity: Limit activity as instructed and Use walker/crutches as instructed Patient Instructions: Opioid Safety (ED), Meniscus Tear (ED), Operative Knee Arthroscopy (DC), Opioid Safety, Pain Management Coding Level of Care Code ED Factory Hand for Mabel Izaguirre
[2023-08-28] MEDS: HYDROcodone-acetaminophen 10-325 mg Tablet 1 TAB PO (22:26)
[2023-08-28] MEDS: naproxen 500 mg Tablet 250 MG PO (22:27)
[2023-08-28 22:40] VITALS: BP 157/93; PULSE 74; O2SAT 97
== END 2023-08-28 22:40 | disposition home or self-care (01) ==
PROVIDERS: Emergency Provider Emergency Medicine; PCP Family Medicine
DX: S83.242A Other tear of medial meniscus, current injury, left knee, initial encounter (principal); F17.210 Nicotine dependence, cigarettes, uncomplicated; X58.XXXA Exposure to other specified factors, initial encounter
CPT/HCPCS: 29530; 99283

== ENCOUNTER 2023-09-04 07:41 | Day surgery (SDC) | payer OTHER, SELFPAY ==
[2023-09-04] VITALS (8 sets, daily range): BP systolic 110–145; BP diastolic 81–94; PULSE 53–62; RESP 16–18; TEMP 36.1–37.1; O2SAT 96–99; BMI 27.1
[2023-09-04] MEDS: sodium chloride 0.9% 1,000 ML 30 ML IV (08:08)
[2023-09-04] MEDS: acetaminophen 1,000 MG/100 ML PIGGYBACK 400 MG IV (08:11)
[2023-09-04] MEDS: ketorolac 30 mg/mL INJ IVP (08:13)
--- NOTE | 2023-09-04 08:53 | ANES.PREANE2 ---
Pre-Anesthetic Assessment Height/Weight: Height 1.83 m Weight 90.718 kg Temp Pulse Resp BP Pulse Ox O2 Del Method 97.8 F 61 16 129/92 98 Room Air 09/04/23 07:54 09/04/23 07:54 09/04/23 07:54 09/04/23 07:54 09/04/23 07:54 09/04/23 07:54 Preop Diagnosis: left knee medial meniscus tear Operation Date: 09/04/23 09:10 Proposed Procedures p Left Knee Arthroscopy w/ partial Medial Menisectomy(Left) - Desmond Moreno, Familial anesthetic complications: None Was Beta Sharda taken within 24 hours: N/A Was Clonidine taken within 24 hours: N/A Last intake: Intake Last Liquid Date 09/04/23 Last Liquid Time 06:00 Last Solid Date 09/03/23 Last Solid Time 21:30 Social Tobacco and No alcohol Exam alert, oriented x 3, clear to auscultation bilaterally and regular rate & rhythm Airway Mallampati: Class II Dentition: false GI Gastroesophageal Reflux Disease Anesthetic Plan ASA status: 2 Anesthesia: General Risk of > 500 ml blood loss (7ml/kg in children): No Medications/Allergies Home Medications Medication Instructions Recorded Confirmed Last Taken Type bupropion HCl 200 mg tablet,12 hr 200 mg PO BID 03/01/20 09/03/23 09/03/23 History sustained-release (Wellbutrin SR) paroxetine HCl 10 mg tablet 10 mg PO DAILY 03/01/20 09/03/23 09/02/23 History famotidine 20 mg tablet (Pepcid AC) 40 - 60 mg PO DAILY PRN Heartburn 05/10/22 09/03/23 09/04/23 History methocarbamol 750 mg tablet 750 mg PO Q6H PRN spasms #20 tabs 05/10/22 09/04/23 Unknown Rx methylphenidate HCl 20 mg biphasic 20 mg PO DAILY 05/10/22 09/03/23 09/02/23 History 50-50 capsule,extended release naproxen 500 mg tablet (Naprosyn) 500 mg PO BID PRN pain #20 tabs 05/10/22 09/03/23 Unknown Rx hydrocodone 7.5 mg-acetaminophen 1 tab PO Q6H PRN pain #20 tabs 08/28/23 09/04/23 Unknown Rx 325 mg tablet Allergies Allergy/AdvReac Type Severity Reaction Status Date / Time No Known Allergies Allergy Verified 09/04/23 07:49 Current Medications Generic Name Dose Route Start Last Admin Trade Name Toy PRN Reason Stop Dose Admin Sodium Chloride 1,000 mls @ 30 mls/hr 09/04/23 08:00 09/04/23 08:08 Sodium Chloride 0.9% IV 09/05/23 07:59 30 mls/hr .Q24H VIDHYA Administration PFSH Anesthesia Medical History Dowd's cyst of knee Chronic back pain Social History Smoking and tobacco/nicotine status: current every day tobacco/nicotine user Alcohol intake: current Data Anesthesia Cardiac Studies: No Data to Display
[2023-09-04] MEDS: fentaNYL 50 mcg/mL INJ 2mL IVP (10:22)
--- NOTE | 2023-09-04 11:10 | P.HP_ITS ---
Same Day Surgery H&P Indication for Procedure/HPI DATE OF PROCEDURE: September 04, 2023 CHIEF COMPLAINT/INDICATIONFOR SURGICAL PROCEDURE: Left knee medial meniscus tear PREOP DIAGNOSIS: left knee medial meniscus tear PLANNED PROCEDURE: Operation Date: 09/04/23 09:10 Proposed Procedures p Left Knee Arthroscopy w/ partial Medial Menisectomy(Left) - Desmond Moreno DO Medications/Allergies* Home Medications Medication Instructions Recorded Confirmed Type bupropion HCl 200 mg tablet,12 hr 200 mg PO BID 03/01/20 09/03/23 History sustained-release (Wellbutrin SR) paroxetine HCl 10 mg tablet 10 mg PO DAILY 03/01/20 09/03/23 History famotidine 20 mg tablet (Pepcid AC) 40 - 60 mg PO DAILY PRN Heartburn 05/10/22 09/03/23 History methylphenidate HCl 20 mg biphasic 20 mg PO DAILY 05/10/22 09/03/23 History 50-50 capsule,extended release Allergies/Adverse Reactions Allergy/AdvReac Type Severity Reaction Status Date / Time No Known Allergies Allergy Verified 09/04/23 07:49 Current Medications: Generic Name Dose Route Start Last Admin Trade Name Freq PRN Reason Stop Dose Admin Fentanyl 50 mcg 09/04/23 07:46 09/04/23 10:22 Fentanyl 50 Mcg/Ml Inj 2ml IVP 50 mcg Q10M PRN Administration Preop Pain Sodium Chloride 1,000 mls @ 30 mls/hr 09/04/23 08:00 09/04/23 08:08 Sodium Chloride 0.9% IV 09/05/23 07:59 30 mls/hr .Q24H VIDHYA Administration Pertinent History/Comorbid Conditions* Medical History (Updated 08/28/23 @ 22:21 by Diaz Richey MD) Dowd's cyst of knee Chronic back pain Social History Smoking and tobacco/nicotine status: current every day tobacco/nicotine user Alcohol intake: current Pertinent Exam Findings alert, oriented x 3, operative site marked and procedure specific exam findings Knee exam -Mild palpable joint effusion. -Active ROM 0-120 -Medial lateral joint line tenderness -Negative Shaun's -Negative valgus, negative varus -Positive Tod's test with pain and no clicking -Patient can wiggle toes and has a pedal pulse of 2+. Recommendations Surgery/Procedure today Other Plans: Plan to proceed with surgery today for left knee diagnostic and surgical arthroscopy with partial medial meniscectomy versus repair. Patient understands risk benefits complication alternatives with surgery through shared decision- making elects proceed with surgical intervention Coding Level of Care Code Acute Code for Chg Fwd Diagnoses
[2023-09-04] MEDS: ceFAZolin 2,000 MG in sodium chloride 0.9% (plus) 50 ML 100 MG IV (11:23)
[2023-09-04] MEDS: lidocaine-epi 2% 20 mL INJ 40 ML INJECTION (12:16)
--- NOTE | 2023-09-04 12:48 | W.PM.BPON ---
Date of procedure: [September 04, 2023] Surgeon name: [Dr. Tiffanie WALSH] Manager Pharmaceutical(s) name(s): [Dhruv Moreno physician associate] Procedure(s) performed: [Left knee diagnostic arthroscopy, Partial medial meniscectomy,Extensive synovectomy ] Description of findings: [Left knee medial meniscus tear, synovitis] Estimated blood loss: [4 ml] Specimen(s) removed: [n/a] Post-operative diagnosis: [Left knee medial meniscus tear, synovitis]
--- NOTE | 2023-09-04 12:52 | PM.PACU ---
PACU note Narrative: Patient is a 43-year-old male that just underwent a left knee arthroscopy with partial medial meniscectomy. Pt transferred to PACU in stable condition. Dressing is dry. pt is awake and alert. pt can wiggle toes and plantarflex and dorsiflex foot. pt able to perform straight leg raise, Femoral nerve intact. Distal pulses are palpable toes are warm and well-perfused. Cap refill is normal and under 2 seconds. Sensation to foot is intact. Pain is controlled. Exam: awake Disposition: discharged
[2023-09-04] MEDS: oxyCODONE-APAP 5-325 mg Tablet 1 TAB PO (13:07)
--- NOTE | 2023-09-04 13:44 | P.OP_ITS ---
Operative Report Date of procedure: September 04, 2023 Surgeon: Desmond Moreno DO Quality Engineering Manager: Dhruv Moreno PA-C PA was necessary for assistance in this case with holding and leg positioning as well as a assistance and instrumentation and execution of the procedure as well as assist in wound closure. Procedure: Preoperative diagnosis: Left knee medial meniscus tear Post-op diagnosis: left?knee?medial meniscus tear left?knee?extensive synovitis Procedure done: Left?knee?diagnostic and surgical arthroscopy partial medial meniscectomy Left?knee?diagnostic and surgical arthroscopy with extensive synovectomy of the medial lateral and patellofemoral compartments Surgeon: Desmond Moreno DO Estimated blood loss: 4cc Tourniquet: No tourniquet was used IV fluids: See anesthesia record Complications: None Findings: See operative report narrative Condition: stable Disposition: same day Brief History: Patient is a 43-year-old male with left?knee?pain.? Patient has failed conservative treatment who has been worked up for left??knee?pain in the outpatient setting. MRI findings consistent with tear of the medial meniscus. talked in the office about treatment options patient would like to proceed with a left?knee?diagnostic and surgical arthroscopy with partial medial meniscectomy vs repair.? Patient understand the ins and outs of the procedure the risk benefits complication alternatives to treatment options.? Understanding risk of surgery they agree to proceed with surgical intervention.? Patient understand this may not provide patient with complete symptomatic relief of? 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 Understanding this and patient agree to proceed with surgical intervention all questions answered. Procedure: Patient seen and evaluated in the preoperative holding area.? Consent was reviewed and signed with patient.? Correct extremity was then marked.? Patient seen evaluated Anesthesia Department once cleared for surgery patient was taken back to the operative suite.? Patient was transported onto the OR table in supine position.? All bony prominences well-padded patient was appropriate secured to the bed.? Once appropriately anesthetized a nonsterile tourniquet was applied to the left thigh.? The left lower extremity was then prepped and draped in standard orthopedic fashion.? Final timeout performed.? Patient received appropriate preoperative antibiotics. Patient received local anesthetic of lidocaine with epinephrine into the joint as well as around the portal sites.? No tourniquet was inflated A standard 2 portal vertical incision diagnostic and surgical arthroscopy of the left?knee?was performed in standard fashion.? Small stab incision made in the inferolateral portal introduced trocar and arthroscope into the suprapatellar pouch.? Suprapatellar pouch was subsequently visualized and found to have significant synovitis but no loose bodies.? Patient had noticeable significant inflamed infrapatellar fat pad and thickening hypertrophic within the patellofemoral compartment.? ?The medial gutter was free of loose bodies I then introduced the arthroscope into the medial compartment.? Within the medial compartment I then established my inferior medial working portal utilizing spinal needle outside in technique.? Once established I then visualized our articular cartilage of the medial compartment with a valgus stress.? 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 Next I inspected the meniscus.? With an arthroscopic probe was utilized to visual? all aspects of the meniscus.? Meniscal root was found to be intact.? Meniscus was found to be torn at the body to posterior horn junction.? Tear was found to be very complex in nature with a radial horizontal longitudinal component extending from the body all the way to mid substance in the posterior horn. This was unable to be repaired. I then subsequently introduced a basket forceps as well as arthroscopic shaver to perform a partial medial meniscectomy to stable meniscal tissue and then utilized a thermal wand to anneal the edges.? Next, I then performed a synovectomy of the medial compartment.? No chondroplasty performed. Completed medial compartment work Next a introduced the arthroscope to the intercondylar notch.? PCL and ACL were intact. patient had significant thickening of the infrapatellar fat pad spanning into the medial and lateral compartments.? I then performed an extensive synovectomy with the arthroscopic shaver of the patellofemoral medial and lat eral compartments as well as the intercondylar notch. Advance the?scope?into the retrocruciate space and no loose bodies were found. Next I introduced the arthroscope into the lateral compartment the lateral compartment was found to have grade 2 chondromalacia.? Lateral meniscus was found to be intact.? The root was intact.? Given the grade II chondromalacia there is no unstable cartilage pieces to perform chondroplasty.? This completed my work of the lateral compartment and then performed a synovectomy of the lateral compartment.? Next of the arthroscope was placed into the lateral gutter and this was free of loose bodies.? Finally I reintroduced the arthroscope into the patellofemoral compartment.? The patellofemoral was found to have grade 2 chondromalacia of the patellofemoral compartment.? At this point I utilized arthroscopic shaver as well as thermal wand to perform extensive synovectomy of the patellofemoral compartment. This completed my work of the patellofemoral space.? I then switch my portal sites to the medial working portal.? Completed the rest of my synovectomy and the rest of my examination arthroscopy was normal. All fluid was suctioned from the joint.? ?All instruments were withdrawn.? Portal sites were closed with interrupted nylon suture.? portal sites were then covered with with Xeroform 4 x 4's ABD Curlex and Alex wrap.? Patient was then subsequently awakened from anesthesia and taken to PACU in stable condition. Disposition: Patient taken to PACU in stable condition recovering well.? Will receive appropriate discharge structure as well as pain medication postoperatively as well as? DVT prophylaxis.we will have patient follow-up with us in the office in 2 weeks.? We will weightbearing as tolerated to the left lower extremity.? Patient understands and agrees with current plan.? All questions answered.
--- NOTE | 2023-09-04 13:50 | ANE.PACU2 ---
Inpatient post-anesthesia follow up: Airway intact: Yes Vital signs: Temperature 98.7 F Pulse Rate 60 Respiratory Rate 16 Blood Pressure 145/94 Pulse Oximetry 98 Oxygen Delivery Me thod Room Air Oxygen Flow Rate Fraction of Inspir ed Oxygen Hydration adequate: Yes Nausea and vomiting: No Pain level: 1 Mental status: Baseline
== END 2023-09-04 13:55 | disposition home or self-care (01) ==
PROVIDERS: PCP Family Medicine; Visit Provider Student in an Organized Health Care Education/Training Program
PROC: (CPT 29870; principal; 2023-09-04 09:10)
DX: S83.242A Other tear of medial meniscus, current injury, left knee, initial encounter (principal); X58.XXXA Exposure to other specified factors, initial encounter; M65.9 Synovitis and tenosynovitis, unspecified; K21.9 Gastro-esophageal reflux disease without esophagitis; F17.210 Nicotine dependence, cigarettes, uncomplicated
CPT/HCPCS: 29876; 29881; J0131; J0690; J1100; J1885; J2250; J2405; J2704; J3010; J7030

== ENCOUNTER → 2024-05-08 10:15 | Outpatient (BNVA) | payer OTHER, SELFPAY | PROVIDERS: PCP Family Medicine; Visit Provider Student in an Organized Health Care Education/Training Program | DX: Z98.890 Other specified postprocedural states (principal); M70.42 Prepatellar bursitis, left knee | CPT/HCPCS: 73560; 73565 ==

== ENCOUNTER 2024-06-11 20:52 | Emergency (ER) | payer OTHER, SELFPAY ==
[2024-06-11 21:27] VITALS: BP 114/77; PULSE 73; RESP 16; TEMP 36.3; O2SAT 99
--- NOTE | 2024-06-11 21:36 | W.ED.HA ---
HPI - Headache General: Chief Complaint: Headache Stated Complaint: headache n/v Time Seen by Provider: 06/11/24 21:19 History of Present Illness: 44-year-old male patient comes in today for complaints of migraine headache. Patient reports symptoms for the past 2 days. Patient reports similar to prior migraines. Medications used at home was not effective. Review of Systems General: Reports: 10 or more systems reviewed and unremarkable except in HPI and below Neuro: Reports: headache(s) PFSH ED PFSH: Medical History Dowd's cyst of knee Chronic back pain Social History Smoking and tobacco/nicotine status: current every day tobacco/nicotine user Alcohol intake: current Physical Exam Const: COMMON NORMALS: alert HENMT: COMMON NORMALS: normocephalic HEAD & SCALP: normocephalic Neck/C-Spine: COMMON NORMALS: full ROM Resp: COMMON NORMALS: normal respiratory effort Cardio: COMMON NORMALS: regular rate RATE: regular rate Back/Pelvis: COMMON NORMALS: thoracic and lumbar spine normal to inspection Extremity: COMMON NORMALS: full ROM Neuro: SENSORIUM/ORIENTATION: Yes alert Skin: COMMON NORMALS: turgor normal GENERAL SKIN EXAM: turgor normal Course Vital Signs: Vital signs: Vital Signs Temperature 97.4 F L 06/11/24 21:27 Pulse Rate 70 06/11/24 22:19 Respiratory Rate 18 06/11/24 22:19 Blood Pressure 114/77 06/11/24 21:27 Pulse Oximetry 98 06/11/24 22:19 MDM - Headache Medical Decision Making 44-year-old male patient comes in today for complaints of migraine. On exam patient appears nontoxic. Patient appears no acute distress. Respirations are even lungs are clear to auscultation. Skin is warm and dry. Vital signs are normal. Differential diagnosis includes not limited to tension headache, migraine headache, cluster headache. Patient was medicated with migraine cocktail consisting of ketorolac 15 mg, Reglan 10 mg, diphenhydramine 50 mg, dexamethasone 10 mg. Patient had resolution of headache and was discharged home. No radiology studies performed this visit Discharge Plan Discharge Patient Disposition: Home Clinical Impression: Migraine Qualifiers: Migraine type: unspecified Status migrainosus presence: without status migrainosus Intractability: intractable Qualified Code(s): G43.919 - Migraine, unspecified, intractable, without status migrainosus Condition: Stable Prescriptions: No Action bupropion HCl [Wellbutrin SR] 200 mg tablet sustained-release 12 hr 200 mg PO BID paroxetine HCl 10 mg tablet 10 mg PO DAILY meloxicam 15 mg tablet 15 mg PO DAILY Qty: 30 0RF methocarbamol 750 mg tablet 750 mg PO 3XD PRN (Reason: spasms) 7 Days Qty: 21 0RF famotidine [Pepcid AC] 20 mg Tablet 40 - 60 mg PO DAILY PRN (Reason: Heartburn) methylphenidate HCl 20 mg capsule,ER biphasic 50-50 20 mg PO DAILY naproxen [Naprosyn] 500 mg tablet 500 mg PO BID PRN (Reason: pain) Qty: 20 0RF Discharge Orders: Discharge ED (Routine); Ordered 06/11/24 Ordered By: Chepe Caban Referrals: Rasta Tariq MD [Primary Care Provider] - Discharge Diet: Usual diet Discharge Activity: Increase activity as tolerated Patient Instructions: Migraine Headache (ED) Activity Restrictions/Additional Instructions: Home and rest. Drink plenty water and fluids. Follow-up with primary care for further instructions. Coding Level of Care Code ED [employer] Tender for Mabel Izaguirre
[2024-06-11] MEDS: sodium chloride 0.9% 500 ML 999 ML IV (21:53)
[2024-06-11] MEDS: metoclopramide 5 mg/mL SDV 2 mL 10 MG IVP (21:56)
[2024-06-11] MEDS: diphenhydrAMINE 50 mg/mL SDV 1mL IVP (21:56)
[2024-06-11] MEDS: ketorolac 30 mg/mL INJ 15 MG IVP (21:57)
[2024-06-11] MEDS: dexamethasone 10 mg/mL INJ IVP (21:58)
[2024-06-11 22:19] VITALS: PULSE 70; RESP 18; O2SAT 98
== END 2024-06-11 22:32 | disposition home or self-care (01) ==
PROVIDERS: Emergency Provider Nurse Practitioner Family; PCP Family Medicine
DX: G43.919 Migraine, unspecified, intractable, without status migrainosus (principal); Z72.0 Tobacco use
CPT/HCPCS: 96374; 96375; 99284; J1100; J1200; J1885; J2765; J7040

== ENCOUNTER 2024-10-16 13:34 | Outpatient (CLI) | payer OTHER, SELFPAY ==
--- NOTE | 2024-10-16 13:38 | MR_ITS ---
WS: [id number] MRI LUMBAR SPINE NONCONTRAST TECHNIQUE: Sagittal T1, T2 and STIR imaging. Axial T1 and T2 imaging. CLINICAL INFORMATION: LUMBAR RADICULOPATHY COMPARISON: None. FINDINGS: Mild lumbar curve. No acute compression. No high-grade central canal stenosis. L1-L2: No significant disc bulging. Mild facet arthropathy. Spinal canal and foramen are patent. L2-L3: Mild annular bulging. Mild facet arthropathy. Spinal canal and foramen are patent. L3-L4: Slight retrolisthesis. Mild annular bulging. Narrowing of the RIGHT subarticular recess. Mild RIGHT foraminal narrowing. LEFT foramen is patent. L4-L5: Shallow central protrusion impinges the traversing RIGHT greater than LEFT L5 nerve roots in t he subarticular recess. Mild facet arthropathy. Mild LEFT greater than RIGHT foraminal narrowing. Mil d central canal stenosis. L5-S1: Shallow central protrusion. Slight impingement on the traversing LEFT greater than RIGHT S1 ne rve roots. Moderate facet arthropathy. Mild LEFT foraminal narrowing. Visualized pelvic bony structures: Normal. Paravertebral soft tissues: Normal. Low signal sclerotic artery lesion RIGHT pelvis likely benign bone island. This is unchanged since . Small shallow central protrusions in the cervical spine at C5-C6 and C6-C7. This could be further lyubov luated with cervical spine MRI. MR/MR lumbar spine wo con* [id number] IMPRESSION: 1. Mild lumbar curve. No acute compression. No high-grade central canal stenos is. 2. Shallow central protrusion at L4-5 impinges the RIGHT greater than LEFT sub articular recess and traversing L5 nerve roots. Mild central canal stenosis. 3. Disc bulging L5-S1 impinges the traversing LEFT greater than RIGHT S1 nerve roots in the subarticular recess. 4. LEFT eccentric disc bulging L4-5 with mild LEFT L4-5 foraminal narrowing. 5. Narrowing of the RIGHT L3-4 subarticular recess.
== END 2024-10-16 13:35 | disposition home or self-care (01) ==
LOC: RAD 13:37
PROVIDERS: PCP Family Medicine; Visit Provider Family Medicine
DX: M51.16 Intervertebral disc disorders with radiculopathy, lumbar region (principal); M43.8X6 Other specified deforming dorsopathies, lumbar region; M48.061 Spinal stenosis, lumbar region without neurogenic claudication; M51.17 Intervertebral disc disorders with radiculopathy, lumbosacral region
CPT/HCPCS: 72148

== ENCOUNTER 2024-12-04 16:32 | Emergency (ER) | payer OTHER, SELFPAY ==
[2024-12-04 16:49] VITALS: BP 140/81; PULSE 90; RESP 16; TEMP 36.9; O2SAT 97; BMI 27.1
--- NOTE | 2024-12-04 20:16 | W.ED.BACK ---
HPI - Back Pain/Injury General: Chief Complaint: Back Pain/Injury Stated Complaint: lower back pain Time Seen by Provider: 12/04/24 19:01 Source: patient Mode of arrival: ambulatory Limitations: no limitations History of Present Illness: Patient is a 44-year-old male who presents emergency department complaining of acute on chronic lower back pain. States is radiating to the left side down the left upper leg. States that he recently had an MRI, is now set to see orthopedic/spine in [place] next week and is here to break the pain. States he took some old hydrocodone at home and this did not help. He is not reporting any saddle anesthesia or loss of bowel or bladder function. Does not report any fevers, trauma, unexplained weight loss, neurological symptoms, IVDU, steroid use, or history of cancer. MD elicited complaint: back pain Pertinent past history: prior back pain Onset (ago): month(s) Timing: constant Severity: severe Similar Symptoms Previously: Yes Quality: sharp Location: lumbar spine Radiation: left upper leg Exacerbating factors: movement Relieving factors: none Associated symptoms: Deny abdominal pain, difficulty walking, fecal incontinence, fever(s) or syncope Related Data Home Medications Medication Instructions Recorded Confirmed bupropion HCl 200 mg tablet,12 hr 200 mg PO BID 03/01/20 06/11/24 sustained-release (Wellbutrin SR) paroxetine HCl 10 mg tablet 10 mg PO DAILY 03/01/20 06/11/24 famotidine 20 mg tablet (Pepcid AC) 40 - 60 mg PO DAILY PRN Heartburn 05/10/22 06/11/24 methylphenidate HCl 20 mg biphasic 20 mg PO DAILY 05/10/22 06/11/24 50-50 capsule,extended release Previous Rx's Medication Instructions Recorded naproxen 500 mg tablet (Naprosyn) 500 mg PO BID PRN pain #20 tabs 05/10/22 methocarbamol 750 mg tablet 750 mg PO 3XD PRN spasms 7 days 09/04/23 #21 tabs meloxicam 15 mg tablet 15 mg PO DAILY #30 tabs 05/08/24 Allergies Allergy/AdvReac Type Severity Reaction Status Date / Time No Known Allergies Allergy Verified 06/11/24 21:30 Review of Systems General: Reports: 10 or more systems reviewed and unremarkable except in HPI and below Const: Reports: other (denies trauma); Denies: fever(s), change in weight or night sweats Card: Denies: chest pain, lightheadedness or syncope Resp: Denies: dyspnea GI: Denies: abdominal pain or fecal incontinence : Denies: urinary incontinence Musc: Reports: back pain, extremity pain (Left upper) and limited range of motion; Denies: neck pain Skin/Breast: Denies: rash or skin pain Neuro: Denies: headache(s), numbness in extremities, weakness in extremities, sensory changes, lack of coordination, difficulty walking, frequent falls or involuntary movements PFS ED PFSH: Medical History Dowd's cyst of knee Chronic back pain Social History Smoking and tobacco/nicotine status: current every day tobacco/nicotine user Alcohol intake: current Physical Exam Const: COMMON NORMALS: patient oriented x3, no limitations, healthy appearing and alert OTHER: Uncomfortable appearing in vertical culture Resp: COMMON NORMALS: normal respiratory effort, No retractions, No use of accessory muscles and clear to auscultation bilaterally AUSCULTATION: clear to auscultation bilaterally Cardio: COMMON NORMALS: regular rate, regular rhythm, S1 normal heart sound present and S2 normal heart sound present RATE: regular rate RHYTHM: regular rhythm HEART SOUNDS: S1 normal heart sound present and S2 normal heart sound present Back/Pelvis: COMMON NORMALS: straight leg raise negative bilaterally OTHER: Normal visual examination. Reproducible tenderness to light palpation of the lumbar spine, tenderness to palpation of the left lower back. No signs of trauma or spinal deformity. No tenderness palpation of thoracic spine cervical spine. No paracervical parathoracic tenderness to palpation. Extremity: COMMON NORMALS: normal to inspection and full ROM Neuro: COMMON NORMALS: patient oriented x3, moves all extremities, no focal motor deficits, no sensory deficits noted, deep tendon reflexes 2+ bilaterally and gait normal SENSORIUM/ORIENTATION: Yes alert OTHER: L3, L4, L5, and S1 nerve sensations intact. Normal knee jerk and ankle jerk reflexes. Skin: COMMON NORMALS: no rashes or lesions noted GENERAL SKIN EXAM: no rashes or lesions noted Course Vital Signs: Vital signs: Vital Signs Temperature 98.4 F 12/04/24 16:49 Pulse Rate 90 12/04/24 16:49 Respiratory Rate 16 12/04/24 16:49 Blood Pressure 140/81 12/04/24 16:49 Pulse Oximetry 97 12/04/24 16:49 MDM - Back Pain/Injury Medical Decision Making Patient presenting for acute on chronic back pain requesting something to control his pain. He took some Mccune at home that did not work, though stated this was old. There is no recent trauma or red flag back symptoms that he reported to me. He does have appointment in [place] with specialist next week. Treat his pain here with medications and have him return with any red flag symptoms. He agrees with this plan will be discharged at this time. No radiology studies performed this visit Discharge Plan Discharge Patient Disposition: Home Clinical Impression: Chronic back pain Condition: Stable Prescriptions: No Action bupropion HCl [Wellbutrin SR] 200 mg tablet sustained-release 12 hr 200 mg PO BID paroxetine HCl 10 mg tablet 10 mg PO DAILY meloxicam 15 mg tablet 15 mg PO DAILY Qty: 30 0RF methocarbamol 750 mg tablet 750 mg PO 3XD PRN (Reason: spasms) 7 Days Qty: 21 0RF famotidine [Pepcid AC] 20 mg Tablet 40 - 60 mg PO DAILY PRN (Reason: Heartburn) methylphenidate HCl 20 mg capsule,ER biphasic 50-50 20 mg PO DAILY naproxen [Naprosyn] 500 mg tablet 500 mg PO BID PRN (Reason: pain) Qty: 20 0RF Discharge Orders: Discharge ED (Routine); Ordered 12/04/24 Ordered By: Riky Tello Referrals: Rasta Tariq MD [Primary Care Provider] - Patient Instructions: Back Pain (ED) Activity Restrictions/Additional Instructions: Follow-up with orthospine in [place] next week as planned. Return with any loss of bowel or bladder function, numbness in the groin region, or any other concerns you have. Coding Level of Care Code ED [facility] Magistrate for Mabel Izaguirre
[2024-12-04 20:31] VITALS: RESP 16
[2024-12-04] MEDS: dexamethasone 10 mg/mL INJ IM (20:31)
[2024-12-04] MEDS: orphenadrine 30 mg/mL Inj 2 mL 60 MG IM (20:31)
== END 2024-12-04 20:32 | disposition home or self-care (01) ==
PROVIDERS: Emergency Provider Physician Assistant; PCP Family Medicine
DX: M54.89 Other dorsalgia (principal); Z72.0 Tobacco use
CPT/HCPCS: 96372; 99284; J1100; J2360

== ENCOUNTER 2025-07-26 18:54 | Emergency (ER) | payer OTHER, SELFPAY ==
--- OUTSIDE RECORDS SUMMARY | 2024-08-29 04:00 | XMS_ITS ---
Author Organization [facility] Address [address] [place] [address] Support Name Relationship Address , Tiffany Manzo Emergency Contact Unkn own Unavailable Ken Manzo Guarantor Unknown [phone] Care Team Providers Care Roof Fitter Name Role Phone Brigido Lin Primary Care Provider Unavailabl e Migration, Provider Unavailable Unavailable REASON FOR VISIT EMR-[facility] Encounters Encounter Location Date Provider Diagnosis Migrated_Facility 0 0 08/29/2024 Provider Migration Plan Of Treatment Medication Medication Name Sig Start Date Stop Date Notes Cyclobenzaprine HCl 10 MG Tablet 1 Once a Day PRN Oral 04/26/2023 05/26/2023 HYDROcodone-Acetaminophen 7.5-325 MG Oral Tablet 1 Tablet Every 6 Hours PRN 04/26/2023 05/26/2023 *Reorder from [facility] for eRx and Interaction Alerts* Progress Notes * Ken MANZO DDOB :1980 (45 yo M)Acc No.[id number]:08/29/2024 Patient: Ken NOGUEIRA :1980 A ge:44 Y S ex:Male Address:[address] [place] [address], [id number] * Refills Stop Cyclobenzaprine HCl Tablet, 10 MG, Oral, 1 Once a Day PRN Stop HYDROcodone-Acetaminophen 7.5-325 MG Oral Tablet, 1 Tablet Every 6 Hours PRN Subjective: * Chief Complaints: * E MR-[facility] * * Date:
--- OUTSIDE RECORDS SUMMARY | 2024-08-30 04:00 | XMS_ITS ---
Author Organization [facility] Address [address] [place] [id number] Support Name Relationship Address , Tiffany Delgadillo Emergency Contact Unkn own Unavailable Ken Delgadillo Guarantor Unknown [phone] Care Team Providers Care Service Operator Name Role Phone Brigido Lin Primary Care Provider Unavailabl e Migration, Provider Unavailable Unavailable REASON FOR VISIT [facility]MR[facility] Medications Medication SIG (Take, Route, Frequency, Duration) Notes Start Date End Date Status Tylenol *Pick strength-f orm from [facility] for eRX* Active [facility]methylphenidate [facility]s* Active buPROPion HCl *Pick strength-f orm from [facility] for eRX* Active Elmont [facility]s* Active PARoxetine HCl *Pick strength-f orm from [facility] for eRX* Active Ibuprofen *Pick strength-f orm from [facility] for eRX* Active Social History Social History Additional Details Category Social Info Options Details Migrated Social History Migrated Social History Alcoholic beverages? - No, Applying for disability? - No, Current Occupation - manager hospital, Drug or substance abuse? - No, Involved in any legal proceedings or lawsuits? - No, Marital Status - , Nonprescription drug use? - No, Participation in detoxification or rehabilitation - No, Smoking - 1 PPD, Smoking status (MU) - Current every day smoker, Working currently? - Yes Encounters Encounter Location Date Provider Diagnosis Migrated_Facility 0 0 08/30/2024 Provider Migration Plan Of Treatment No Information Progress Notes * JOVANYKen Banks DDOB :1980 (45 yo M)Acc No.[id number]:08/30/2024 Patient: Ken NOGUEIRA :1980 A ge:44 Y S ex:Male Address:[address] [place] [address], [id number] Subjective: * Chief Complaints: * E Marian * Family History: M igrated Family History: : Diabetes. * Social History: M igrated Social History: M igrated Social History: Alcoholic beverages? - No, A pplying for disability? - No, C urrent Occupation - manager hospital, D rug or substance abuse? - No, I nvolved in any legal proceedings or lawsuits? - No, M arital Status - , N onprescription drug use? - No, P articipation in detoxification or rehabilitation - No, S moking - 1 PPD, S moking status (MU) - Current every day smoker, W orking currently? - Yes. * Medications: T akingPARoxetine HCl , Notes to Pharmacist: *Pick strength-form from [facility] for eRX*Ibuprofen , Notes to Pharmacist: *Pick strength-form from [facility] for eRX*Elmont , Notes to Pharmacist: *Reorder from [facility] for eRx and Interaction Alerts*Tylenol , Notes to Pharmacist: *Pick strength-form from [facility] for eRX*buPROPion HCl , Notes to Pharmacist: *Pick strength-form from [facility] for eRX*dexmethylphenidate , Notes to Pharmacist: *Reorder from [facility] for eRx and Interaction Alerts*Taking PARoxetine HCl , Notes to Pharmacist: *Pick strength-form from [facility] for eRX*Taking Ibuprofen , Notes to Pharmacist: *Pick strength-form from [facility] for eRX*Taking Elmont , Notes to Pharmacist: *Reorder from [facility] for eRx and Interaction Alerts*Taking Tylenol , Notes to Pharmacist: *Pick strength-form from [facility] for eRX*Taking buPROPion HCl , Notes to Pharmacist: *Pick strength-form from [facility] for eRX*Taking dexmethylphenidate , Notes to Pharmacist: *Reorder from [facility] for eRx and Interaction Alerts* * * Date:
--- OUTSIDE RECORDS SUMMARY | 2025-07-26 18:59 | XMS_ITS | Encounter Summary ---
Author Organization [employer] [facility] Address [address] [place] [address] Care Team Providers Care Laborer Marine Terminal Name Role Phone Unavailable Primary Care Provider Unavailabl e Encounter Details Date Type Department Care Team (Latest Contact Info) Description 08/25/2001 Outpatient Historical [facility] Jese Shen, Jean-Claude Hope MD [address] [place] [phone] Chronic airway obstruction, not elsewhere classified (CMS/HCC) (Primary Dx); Depressive disorder, not elsewhere classified Social History Tobacco Use Types Packs/Day Years Used Date Smoking Tobacco: Never Assessed Sex and Gender Information Value Date Recorded Sex Assigned at Not on file Legal Sex Male 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
--- OUTSIDE RECORDS SUMMARY | 2025-07-26 18:59 | XMS_ITS | Encounter Summary ---
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
--- OUTSIDE RECORDS SUMMARY | 2025-07-26 18:59 | XMS_ITS | Encounter Summary ---
Author Organization [employer] [facility] Address [address] [place] [address] Care Team Providers Care Retirement Manager Name Role Phone Unavailable Primary Care Provider Unavailabl e Encounter Details Date Type Department Care Team (Latest Contact Info) Description 05/21/2002 Outpatient Historical [facility] Cain Garibay MD [address] [place] [address] MIGRAINE NOS W/O MENTN INTRACTABLE (Primary Dx) Social History Tobacco Use Types Packs/Day Years Used Date Smoking Tobacco: Never Assessed Sex and Gender Information Value Date Recorded Sex Assigned at Not on file 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
--- OUTSIDE RECORDS SUMMARY | 2025-07-26 18:59 | XMS_ITS | Patient Health Record ---
Author Organization [facility] Address [address] [place] [address] Support Name Relationship Address , Tiffany Delgadillo Emergency Contact Unkn own Unavailable Ken Delgadillo Guarantor Unknown [phone] Care Team Providers Care Engineering Agent Name Role Phone Brigido Lin Primary Care Provider Unavailabl e Migration, Provider Unavailable Unavailable Reason For Referral No Information Medications Medication SIG (Take, Route, Frequency, Duration) Notes Start Date End Date Status Tylenol *Pick strength-f orm from [facility] for eRX* Active Ibuprofen *Pick strength-f orm from [facility] for eRX* Active dexmethylphenidate *[facility] Alert[facility]* Active buPROPion HCl *Pick strength-f orm from [facility] for eRX* Active [facility] *[facility] and Interaction Alert[facility]* Active PARoxetine HCl *Pick strength-f orm from [facility] for eRX* Active Social History Social History Additional Details Category Social Info Options Details Migrated Social History Migrated Social History Alcoholic beverages? - No, Applying for disability? - No, Current Occupation - restaurant district manager, Drug or substance abuse? - No, Involved in any legal proceedings or lawsuits? - No, Marital Status - , Nonprescription drug use? - No, Participation in detoxification or rehabilitation - No, Smoking - 1 PPD, Smoking status (MU) - Current every day smoker, Working currently? - Yes Encounters Encounter Location Date Provider Diagnosis Migrated_Facility 0 0 08/29/2024 Provider Migration Migrated_Facility 0 0 08/30/2024 Provider Migration Plan Of Treatment No Information
--- OUTSIDE RECORDS SUMMARY | 2025-07-26 18:59 | XMS_ITS | Encounter Summary ---
Author Organization [facility] Address [address] [place] [address] Care Team Providers Care Card Puncher Name Role Phone Unavailable Primary Care Provider Unavailabl e Encounter Details Date Type Department Care Team (Latest Contact Info) Description 11/30/[address] [facility] [address] 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
--- OUTSIDE RECORDS SUMMARY | 2025-07-26 18:59 | XMS_ITS | Encounter Summary ---
Author Organization [employer] [facility] Address [address] [place] [address] Care Team Providers Care Occupational Health Specialist Name Role Phone Unavailable Primary Care Provider Unavailabl e Encounter Details Date Type Department Care Team (Late st Contact Info) Description 12/25/2004 Outpatient Historical [facility] Pain Management Procedures [address] 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
--- OUTSIDE RECORDS SUMMARY | 2025-07-26 18:59 | XMS_ITS | Encounter Summary ---
Author Organization [employer] [facility] Address [address] [place] [address] Care Team Providers Care Per Diem Nurse Name Role Phone Unavailable Primary Care Provider Unavailabl e Encounter Details Date Type Department Care Team (Latest Contact Info) Description 08/06/2002 Outpatient Historical [facility] Cain Garibay MD [address] [place] [phone] MIGRAINE NOS W/O MENTN INTRACTABLE (Primary Dx); ALLERGIC RHINITIS NOS Social History Tobacco Use Types Packs/Day Years Used Date Smoking Tobacco: Never Assessed Sex and Gender Information Value Date Recorded Sex Assigned at Not on file 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
--- OUTSIDE RECORDS SUMMARY | 2025-07-26 18:59 | XMS_ITS | Encounter Summary ---
Author Organization [email or web address] [facility] Address [address] [place] [address] Care Team Providers Care Code And Test Clerk Name Role Phone Unavailable Primary Care Provider Unavailabl e Encounter Details Date Type Department Care Team (Latest Contact Info) Description 02/23/2000 Outpatient Historical [facility] Cain Garibay MD [address] [place] [address] Nonallopathic lesion of abdomen and other sites, not elsewhere classified (Primary Dx); Nonallopathic lesion of cervical region, not elsewhere classified; Nonallopathic lesion of thoracic region, not elsewhere classified Social History Tobacco Use Types Packs/Day Years Used Date Smoking Tobacco: Never Assessed Sex and Gender Information Value Date Recorded Sex Assigned at Not on file 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
--- OUTSIDE RECORDS SUMMARY | 2025-07-26 18:59 | XMS_ITS | Encounter Summary ---
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
--- OUTSIDE RECORDS SUMMARY | 2025-07-26 18:59 | XMS_ITS | Encounter Summary ---
Author Organization [employer] [facility] Address [address] [place] [address] Care Team Providers Care Audio Visual Specialist Name Role Phone Unavailable Primary Care Provider Unavailabl e Encounter Details Date Type Department Care Team (Latest Contact Info) Description 09/01/2001 Outpatient Historical [facility] Jese Shen, Jean-Claude Hope MD [address] [place] [phone] ACUTE SINUSITIS NOS (Primary Dx); DEPRESSIVE DISORDER NEC Social History Tobacco Use Types Packs/Day Years Used Date Smoking Tobacco: Never Assessed Sex and Gender Information Value Date Recorded Sex Assigned at Not on file 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
--- OUTSIDE RECORDS SUMMARY | 2025-07-26 18:59 | XMS_ITS | Encounter Summary ---
Author Organization [facility] Address [address] [place] [address] Care Team Providers Care Plant Anatomy Teacher Name Role Phone Unavailable Primary Care Provider Unavailabl e Encounter Details Date Type Department Care Team (Latest Contact Info) Description 11/24/2004 Outpatient Historical [facility] [place] [address] [phone] Yariel Sarkar MD NO ADDRESS ON FILE LUMB/LUMBOSAC DISC DEGEN (Primary Dx) Social History Tobacco Use Types Packs/Day Years Used Date Smoking Tobacco: Never Assessed Sex and Gender Information Value Date Recorded Sex Assigned at Not on file 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
--- OUTSIDE RECORDS SUMMARY | 2025-07-26 18:59 | XMS_ITS | Clinical Summary ---
Author Organization [facility] Address [address] 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
--- OUTSIDE RECORDS SUMMARY | 2025-07-26 18:59 | XMS_ITS | Encounter Summary ---
Author Organization [employer] [facility] Address [address] [place] [address] Care Team Providers Care Tape Recording Machine Operator Name Role Phone Unavailable Primary Care Provider Unavailabl e Encounter Details Date Type Department Care Team (Latest Contact Info) Description 06/22/2002 Outpatient Historical [facility] Cain Garibay MD [address] [place] [address] UNSPEC CONSTIPATION (Primary Dx); HEADACHE Social History Tobacco Use Types Packs/Day Years Used Date Smoking Tobacco: Never Assessed Sex and Gender Information Value Date Recorded Sex Assigned at Not on file 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
--- OUTSIDE RECORDS SUMMARY | 2025-07-26 18:59 | XMS_ITS | Encounter Summary ---
Author Organization [facility] Address [address] [place] [address] Care Team Providers Care Manager Of Program Name Role Phone Unavailable Primary Care Provider Unavailabl e Encounter Details Date Type Department Care Team (Latest Contact Info) Description 07/30/2001 Outpatient Historical [facility] Jese Shen, Jean-Cluade Hope MD [address] [place] [phone] Headache(784.0) (Primary Dx); Acute sinusitis, unspecified Social History Tobacco Use Types Packs/Day Years Used Date Smoking Tobacco: Never Assessed Sex and Gender Information Value Date Recorded Sex Assigned at Not on file 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
--- OUTSIDE RECORDS SUMMARY | 2025-07-26 18:59 | XMS_ITS | Encounter Summary ---
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
--- OUTSIDE RECORDS SUMMARY | 2025-07-26 18:59 | XMS_ITS | Encounter Summary ---
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
--- OUTSIDE RECORDS SUMMARY | 2025-07-26 18:59 | XMS_ITS | Encounter Summary ---
Author Organization [facility] Address [address] [place] [address] Care Team Providers Care Meal Attendant Name Role Phone Unavailable Primary Care Provider Unavailabl e Encounter Details Date Type Department Care Team (Latest Contact Info) Description 11/24/2004 Outpatient Historical [facility] Pain Management- [place] [address] 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
--- OUTSIDE RECORDS SUMMARY | 2025-07-26 18:59 | XMS_ITS | Encounter Summary ---
Author Organization [employer] [facility] Address [address] [place] [address] Care Team Providers Care Paint Tinter Name Role Phone Unavailable Primary Care Provider Unavailabl e Encounter Details Date Type Department Care Team (Latest Contact Info) Description 08/13/2001 Outpatient Historical [facility] Jese Shen, Jean-Claude Hope MD [address] [place] [phone] Depressive disorder, not elsewhere classified (Primary Dx) Social History Tobacco Use Types Packs/Day Years Used Date Smoking Tobacco: Never Assessed Sex and Gender Information Value Date Recorded Sex Assigned at Not on file 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
--- OUTSIDE RECORDS SUMMARY | 2025-07-26 18:59 | XMS_ITS | Encounter Summary ---
Author Organization [employer] [facility] Address [address] [place] [address] Care Team Providers Care Mortgage Coordinator Name Role Phone Unavailable Primary Care Provider Unavailabl e Encounter Details Date Type Department Care Team (Latest Contact Info) Description 11/20/2001 Outpatient Historical 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
--- OUTSIDE RECORDS SUMMARY | 2025-07-26 18:59 | XMS_ITS | Encounter Summary ---
Author Organization [employer] [facility] Address [address] [place] [address] Care Team Providers Care Equipment Analyst Name Role Phone Unavailable Primary Care Provider Unavailabl e Encounter Details Date Type Department Care Team (Latest Contact Info) Description 11/30/2004 Outpatient Historical [facility] Pain Management Procedures [address] 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
--- OUTSIDE RECORDS SUMMARY | 2025-07-26 18:59 | XMS_ITS | Encounter Summary ---
Author Organization [employer] [facility] Address [address] [place] [address] Care Team Providers Care Chief Privacy Officer Name Role Phone Unavailable Primary Care Provider Unavailabl e Encounter Details Date Type Department Care Team (Latest Contact Info) Description 08/28/2001 Outpatient Historical [facility] Jese Shen, Jean-Claude Hope MD [address] [place] [address] Depressive disorder, not elsewhere classified (Primary Dx) Social History Tobacco Use Types Packs/Day Years Used Date Smoking Tobacco: Never Assessed Sex and Gender Information Value Date Recorded Sex Assigned at Not on file 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
--- OUTSIDE RECORDS SUMMARY | 2025-07-26 18:59 | XMS_ITS | Encounter Summary ---
Author Organization [email or web address] 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
--- OUTSIDE RECORDS SUMMARY | 2025-07-26 18:59 | XMS_ITS | Encounter Summary ---
Author Organization [employer] Address [address] [place] [address] Care Team Providers Care Pond Worker Name Role Phone Unavailable Primary Care Provider Unavailabl e Encounter Details Date Type Department Care Team (Latest Contact Info) Description 08/22/2001 Outpatient Historical [facility] Jese Shen, Jean-Claude Hope MD [address] [place] [id number] Depressive disorder, not elsewhere classified (Primary Dx); Abrasion or friction burn of other, multiple, and unspecified sites, without mention of infection Social History Tobacco Use Types Packs/Day Years Used Date Smoking Tobacco: Never Assessed Sex and Gender Information Value Date Recorded Sex Assigned at Not on file 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
--- OUTSIDE RECORDS SUMMARY | 2025-07-26 18:59 | XMS_ITS | Encounter Summary ---
Author Organization [employer] [facility] Address [address] [place] [address] Care Team Providers Care Industrial Pharmacist Name Role Phone Unavailable Primary Care Provider Unavailabl e Encounter Details Date Type Department Care Team (Latest Contact Info) Description 11/26/2002 Outpatient Historical [facility] Cain Garibay MD [address] [place] [id number] HEMATEMESIS (Primary Dx); STOMACH FUNCTION DIS NEC; HEADACHE Social History Tobacco Use Types Packs/Day Years Used Date Smoking Tobacco: Never Assessed Sex and Gender Information Value Date Recorded Sex Assigned at Not on file 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
[2025-07-26 19:01] VITALS: BP 136/79; PULSE 67; RESP 18; O2SAT 98
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
--- NOTE | 2025-07-26 20:18 | XRR_ITS ---
PROCEDURE INFORMATION: Exam: XR Left Knee Exam date and time: 07/26/2025 8:21 PM Age: 45 years old Clinical indication: Injury or trauma; Fall; Blunt trauma; Knee; Left TECHNIQUE: Imaging protocol: Radiologic exam of the left knee. Views: 3 views. COMPARISON: CR XR knees AP WB w LT lmt ORTH 05/08/2024 10:28 AM FINDINGS: Bones/joints: Normal. Soft tissues: Normal. XR/XR knee LT 3V* [id number] IMPRESSION: No acute findings.
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
[2025-07-26] MEDS: HYDROcodone-acetaminophen 5-325 mg Tablet 1 TAB PO (20:22)
[2025-07-26 20:28] VITALS: BP 125/81; O2SAT 97
[2025-07-26 20:41] VITALS: BP 134/89; PULSE 66; RESP 17; O2SAT 96
== END 2025-07-26 20:43 | disposition home or self-care (01) ==
PROVIDERS: Emergency Provider Emergency Medicine; PCP Family Medicine
DX: S76.012A Strain of muscle, fascia and tendon of left hip, initial encounter (principal); Z72.0 Tobacco use; V29.888A Rider (driver) (passenger) of other motorcycle injured in other specified transport accidents, initial encounter
CPT/HCPCS: 73502; 73562; 99284; J9999